=== PATIENT | male | born 1985 | race Caucasian/White ===

== ENCOUNTER 2019-10-03 22:20 | Emergency (ER) | payer OTHER ==
[2019-10-03] MEDS ORDERED: ONDANSETRON 4 MG TAB.RAPDIS PO ONE (22:49)
--- NOTE | 2019-10-03 22:51 | ER Document Report ---
ED Medical Screen (RME) - General Stated Complaint: NAUSEA/DIARRHEA Time Seen by Provider: 10/03/19 22:46 Primary Care Provider: RYLEE BURGESS MD [Primary Care Provider] - Follow up as needed TRAVEL OUTSIDE OF THE [place] IN LAST 30 DAYS: No - HPI Notes: 10/03/19 22:50 Patient is a 34-year-old male with a history of hypertension, hypercholesterolemia, GERD, asthma presents complaining of having nausea and vomiting as well as diarrhea that began this morning. He came by EMS and did receive 4 mg of Zofran about 45 minutes ago. He is still urinating normally. No melena or hematochezia. He did have a URI recently and finished antibiotics a few days ago. Denies any fever, cough, chest pain, shortness of breath. I have treated and performed a rapid initial assessment of this patient. A comprehensive ED assessment and evaluation of the patient, analysis of test results and completion of medical decision making process will be conducted by additional ED providers. PHYSICAL EXAMINATION: GENERAL: Well-appearing, well-nourished and in no acute distress. A&Ox4. Answers questions appropriately. Abdomen: Limited exam in triage, grossly nontender throughout. Abdomen is soft. - Related Data Allergies/Adverse Reactions: No Known Allergies Allergy (Verified 10/03/19 22:48) Past Medical History Past Surgical History: Reports: Hx Oral Surgery - Immunizations Hx Diphtheria, Pertussis, Tetanus Vaccination: No Physical Exam - Vital signs Vitals: Temp Pulse Resp BP Pulse Ox 98.2 F 100 20 168/109 H 96 10/03/19 22:31 10/03/19 22:31 10/03/19 22:31 10/03/19 22:31 10/03/19 22:31 Course - Vital Signs Vital signs: Temp Pulse Resp BP Pulse Ox 98.2 F 100 20 168/109 H 96 10/03/19 22:31 10/03/19 22:31 10/03/19 22:31 10/03/19 22:31 10/03/19 22:31 Doctor's Discharge - Discharge Referrals: RYLEE BURGESS MD [Primary Care Provider] - Follow up as needed
[2019-10-04 00:10] LABS: APPEARANCE,URINE CLEAR; BILIRUBIN,URINE NEGATIVE (NEGATIVE); COLOR,URINE YELLOW; GLUCOSE, URINE NEGATIVE (NEGATIVE); KETONES,URINE NEGATIVE (NEGATIVE); PROTEIN,URINE NEGATIVE (NEGATIVE); URINE SPECIFIC GRAVITY 1.011; UROBILINOGEN,URINE NEGATIVE mg/dL (<2.0)
[2019-10-04] MEDS: NORMAL SALINE 1000 ML 1,000 ML IV PRN ×2 (00:18→02:43)
[2019-10-04 00:28] LABS: ABSOLUTE BASOPHILS # (AUTO) 0.1 10^3/uL (0.0-0.2); ABSOLUTE EOSINOPHILS # (AUTO) 0.1 10^3/uL (0.0-0.6); ABSOLUTE LYMPHOCYTES (AUTO) 2.4 10^3/uL (0.5-4.7); ABSOLUTE MONOCYTES (AUTO) 0.8 10^3/uL (0.1-1.4); BASOPHILS % (AUTO) 0.9 % (0-2); EOSINOPHILS % (AUTO) 0.5 % (0-6); HEMATOCRIT 49.6 % (37.9-51.0); HEMOGLOBIN 17.8 g/dL (13.5-17.0); LYMPHOCYTES % (AUTO) 15.5 % (13-45); MEAN CORPUSCULAR HEMOGLOBIN 31.3 pg (27.0-33.4); MEAN CORPUSCULAR HGB CONC 35.9 g/dL (32.0-36.0); MEAN CORPUSCULAR VOLUME 87 fl (80-97); MONOCYTES % (AUTO) 5.4 % (3-13); PLATELET COUNT 305 10^3/uL (150-450); RED BLOOD COUNT 5.71 10^6/uL (4.35-5.55); RED CELL DISTRIBUTION WIDTH 13.4 % (11.5-14.0); SEGMENTED NEUTROPHILS % (AUTO) 77.7 % (42-78); TOTAL CELLS COUNTED % (AUTO) 100 %; WHITE BLOOD COUNT 15.5 10^3/uL (4.0-10.5)
[2019-10-04 00:44] LABS: ALBUMIN 4.9 g/dL (3.5-5.0); ALKALINE PHOSPHATASE 91 U/L (38-126); ANION GAP 14 (5-19); ASPARTATE AMINO TRANSFERASE 88 U/L (17-59); BILIRUBIN,DIRECT 0.3 mg/dL (0.0-0.4); BILIRUBIN,TOTAL 0.5 mg/dL (0.2-1.3); BLOOD UREA NITROGEN 12 mg/dL (7-20); CALCIUM 9.8 mg/dL (8.4-10.2); CARBON DIOXIDE 25 mmol/L (22-30); CHLORIDE 100 mmol/L (98-107); GLUCOSE 111 mg/dL (75-110); POTASSIUM 4.1 mmol/L (3.6-5.0); TOTAL PROTEIN 8.7 g/dL (6.3-8.2)
--- NOTE | 2019-10-04 01:47 | ER Document Report ---
ED GI/ - General Chief Complaint: Nausea/Vomiting/Diarrhea Stated Complaint: NAUSEA/DIARRHEA Time Seen by Provider: 10/03/19 22:46 Primary Care Provider: RYLEE BURGESS MD [ACTIVE STAFF] - Follow up as needed Notes: Patient is a 34-year-old male that comes emergency department for chief complaint of diarrhea, nausea, and intermittent mid to lower abdominal cramping. He states he has had about 12 episodes of nonbloody diarrhea today, he got nauseated but he denies vomiting, he denies fever. He denies current abdominal pain and occasionally has cramps. Patient finished antibiotics a few days ago after being treated for an upper respiratory infection, he is unsure of the antibiotic however. He denies having C. difficile in the past. He denies suspicious foods, sick contacts, recent travel. He is on medication for hyperlipidemia and GERD, also reports a history of asthma and TBI, denies any abdominal surgeries, denies smoking, alcohol, recreational drugs. Patient came by EMS. TRAVEL OUTSIDE OF THE [place] IN LAST 30 DAYS: No - Related Data Allergies/Adverse Reactions: No Known Allergies Allergy (Verified 10/03/19 22:48) Home Medications: GERD. HIGH LIIDS Past Medical History - General Information source: Patient - Social History Smoking Status: Former Smoker Frequency of alcohol use: None Drug Abuse: None Lives with: Family Family History: Reviewed & Not Pertinent Patient has suicidal ideation: No Patient has homicidal ideation: No Pulmonary Medical History: Reports: Hx Asthma GI Medical History: Reports: Hx Gastroesophageal Reflux Disease Past Surgical History: Reports: Hx Oral Surgery - wisdom teeth - Immunizations Hx Diphtheria, Pertussis, Tetanus Vaccination: No Review of Systems - Review of Systems Constitutional: No symptoms reported EENT: No symptoms reported Cardiovascular: No symptoms reported Respiratory: No symptoms reported Gastrointestinal: See HPI Genitourinary: No symptoms reported Male Genitourinary: No symptoms reported Musculoskeletal: No symptoms reported Skin: No symptoms reported Hematologic/Lymphatic: No symptoms reported Neurological/Psychological: No symptoms reported Physical Exam - Vital signs Vitals: Temp Pulse BP Pulse Ox 98.2 F 100 168/109 H 96 10/03/19 22:30 10/03/19 22:30 10/03/19 22:30 10/03/19 22:30 - Notes Notes: GENERAL: Alert, interacts well. No acute distress. HEAD: Normocephalic, atraumatic. EYES: Pupils equal, round, and reactive to light. Extraocular movements intact. ENT: Oral mucosa dry, tongue midline. Oropharynx unremarkable. Airway patent. LUNGS: Clear to auscultation bilaterally, no wheezes, rales, or rhonchi. No respiratory distress. HEART: Regular rate and rhythm. No murmur ABDOMEN: Soft, non-tender. Non-distended. Bowel sounds present in all 4 quadrants. No guarding or rigidity. GENITOURINARY: Deferred EXTREMITIES: Moves all 4 extremities spontaneously. No edema, normal radial and dorsalis pedis pulses bilaterally. No cyanosis. BACK: no cervical, thoracic, lumbar midline tenderness. No saddle anesthesia, normal distal neurovascular exam. Moves all extremities in full range of motion. NEUROLOGICAL: Alert and oriented x3. Normal speech. Cranial nerves II through XII grossly intact. PSYCH: Normal affect, normal mood. SKIN: Warm, dry, normal turgor. No rashes or lesions noted. Course - Re-evaluation Re-evalutation: Patient is talkative, well-appearing, alert on exam. His abdomen is completely benign with no tenderness. Patient states he thinks he will be able to give us a sample of diarrhea because he has had so many today. Vital signs unremarkable. CBC does show leukocytosis greater than 15,000, nonspecific given diarrhea. Chemistry nonspecific but does have slightly elevated LFTs. Lipase unremarkable. Patient does not have any right upper quadrant tenderness or flank pain on exam. I reevaluated patient. Patient states the Zofran made him feel great, he feels great after IV fluids and he is wondering if he can just go home. He has attempted twice to give us a stool sample but has been unable to do so. He states he has not been able to go for several hours now. Patient is actually quite happy with this, symptoms have significantly improved and basically resolved. Patient tolerated p.o. without any difficulty or any symptoms. I did attempt to get a stool sample from him but because he has not had any I do have a low suspicion of C. difficile. Overall presentation is most likely viral given his lack of abdominal tenderness, symptom resolution, and very well appearance. Very low suspicion of acute abdomen. Low suspicion of significant infection as well. Discussed expectations, follow-up, and return precautions in detail with patient and family. They state appreciation and agreement. Stable at time of discharge. - Vital Signs Vital signs: Temp Pulse Resp BP Pulse Ox 97.8 F 74 14 145/95 H 95 10/04/19 04:27 10/04/19 04:27 10/04/19 04:27 10/04/19 04:27 10/04/19 04:27 - Laboratory Result Diagrams: 10/04/19 00:10 10/04/19 00:10 Laboratory results interpreted by me: 10/03/19 10/04/19 10/04/19 23:45 00:10 00:10 WBC 15.5 H RBC 5.71 H Hgb 17.8 H Absolute Neuts (auto) 12.0 H Glucose 111 H AST 88 H ALT 164 H Total Protein 8.7 H Urine Blood SMALL H Discharge - Discharge Clinical Impression: Abdominal pain Qualifiers: Abdominal location: generalized Qualified Code(s): R10.84 - Generalized abdominal pain Diarrhea Qualifiers: Diarrhea type: unspecified type Qualified Code(s): R19.7 - Diarrhea, u nspecified Condition: Stable Disposition: HOME, SELF-CARE Additional Instructions: You have been treated for dehydration, abdominal pain, diarrhea today. Based on your resolving symptoms I suspect this is viral. Take Zofran if needed for nausea, I recommend [id number] probiotics to recover, start with bland food and slowly progress. Follow-up with primary care. Return for any concerning symptoms including vomi ting, severe worsening pain, fever, or any other concerning symptoms. Prescriptions: Ondansetron [Zofran Odt 4 mg Tablet] 1 - 2 tab PO Q4H PRN #15 tab.rapdis PRN Reason: For Nausea/Vomiting Referrals: RYLEE BURGESS MD [ACTIVE STAFF] - Follow up as needed
[2019-10-04] MEDS ORDERED: ONDANSETRON HCL INJ/PF 4 MG/2 ML SDV IV ONE (04:00)
[2019-10-04] MEDS ORDERED: ONDANSETRON ODT 4 MG TAB (6 TAB/ER DISP) PO PRN (04:00)
[2019-10-04 04:27] VITALS: BP 145/95
== END 2019-10-04 04:28 | disposition home or self-care (01) ==
LOC: ER 22:20
DX: R19.7 Diarrhea, unspecified (principal); R10.84 Generalized abdominal pain; R11.0 Nausea; D72.829 Elevated white blood cell count, unspecified; R79.89 Other specified abnormal findings of blood chemistry; E78.5 Hyperlipidemia, unspecified; K21.9 Gastro-esophageal reflux disease without esophagitis; J45.909 Unspecified asthma, uncomplicated; Z79.899 Other long term (current) drug therapy; Z87.891 Personal history of nicotine dependence
CPT/HCPCS: 99284; 96361; 96374; 36415; 83690; 85025; 80053; 81001; S0119; J2405; J7030

== ENCOUNTER 2020-02-24 13:03 | Emergency (ER) | payer OTHER ==
[2020-02-24] MEDS ORDERED: LIDOCAINE 2% VISCOUS SOLN 15 ML UDCUP PO ONE (16:21)
[2020-02-24] MEDS ORDERED: MAG HYDROX/AL HYDROX/SIMETH SUSP 30 ML UDCUP PO ONE (16:21)
[2020-02-24] MEDS ORDERED: ONDANSETRON 4 MG TAB.RAPDIS PO ONE (16:21)
[2020-02-24] MEDS ORDERED: METOCLOPRAMIDE HCL ORAL SOLN 10 MG/10 ML UDCUP PO ONE (16:21)
--- NOTE | 2020-02-24 16:48 | ER Document Report ---
ED General - General Chief Complaint: Nausea Stated Complaint: NAUSEA Time Seen by Provider: 02/24/20 16:13 Primary Care Provider: MARIS VALENTINE MD [Primary Care Provider] - Follow up as needed Mode of Arrival: Ambulatory Information source: Patient TRAVEL OUTSIDE OF THE [place] IN LAST 30 DAYS: No - HPI Notes: Patient presents with nausea. He states he has some upper abdominal discomfort but that he has had significant nausea for 3 days and that is why he comes in. The discomfort is mild and its across both sides the upper abdomen. It does radiate from one side to the other. Is intermittent. Nothing makes it better or worse. He states he has not vomited but he has had significant nausea. No problems with urination or bowel movements. No fevers. He denies any known covert virus exposures. No history of abdominal surgeries. - Related Data Allergies/Adverse Reactions: No Known Allergies Allergy (Verified 02/24/20 16:20) Past Medical History - General Information source: Patient - Social History Smoking Status: Former Smoker Frequency of alcohol use: None Drug Abuse: None Family History: Reviewed & Not Pertinent Patient has homicidal ideation: No Pulmonary Medical History: Reports: Hx Asthma GI Medical History: Reports: Hx Gastroesophageal Reflux Disease Past Surgical History: Reports: Hx Oral Surgery - wisdom teeth - Immunizations Hx Diphtheria, Pertussis, Tetanus Vaccination: No Review of Systems - Review of Systems Constitutional: denies: Chills, Fever Cardiovascular: denies: Chest pain, Palpitations Respiratory: denies: Cough, Short of breath -: Yes All other systems reviewed and negative Physical Exam - Vital signs Vitals: Temp Pulse Resp BP Pulse Ox 99.0 F 74 16 139/84 H 100 02/24/20 14:09 02/24/20 14:09 02/24/20 14:09 02/24/20 14:09 02/24/20 14:09 Interpretation: Normal - General General appearance: Appears well, Alert - HEENT Head: Normocephalic, Atraumatic Eyes: Normal Pupils: PERRL - Respiratory Respiratory status: No respiratory distress Chest status: Nontender Breath sounds: Normal Chest palpation: Normal - Cardiovascular Rhythm: Regular Heart sounds: Normal auscultation Murmur: No - Abdominal Inspection: Normal Distension: No distension Bowel sounds: Normal Tenderness: Tender - minimal epigastric tenderness to palp Organomegaly: No organomegaly - Back Back: Normal, Nontender - Extremities General upper extremity: Normal inspection, Nontender, Normal color, Normal ROM, Normal temperature General lower extremity: Normal inspection, Nontender, Normal color, Normal ROM, Normal temperature, Normal weight bearing. No: Aileen's sign - Neurological Neuro grossly intact: Yes Cognition: Normal Orientation: AAOx4 [place] Coma Scale Eye Opening: Spontaneous [place] Coma Scale Verbal: Oriented Ana Coma Scale Motor: Obeys Commands Ana Coma Scale Total: 15 Speech: Normal Motor strength normal: LUE, RUE, LLE, RLE Sensory: Normal - Psychological Associated symptoms: Normal affect, Normal mood - Skin Skin Temperature: Warm Skin Moisture: Dry Skin Color: Normal Course - Re-evaluation Re-evalutation: 02/24/20 18:50 Patient came in with epigastric discomfort and nausea. He said his main symptom was nausea. He has no evidence of cardiac pathology by troponin or EKG. Patient is currently waiting on the reading of his ultrasound to see if there is any gallbladder or biliary component to his symptoms. He does have some minor elevation of his LFTs. I have turned the care of the patient over to Dr. Paradise vallejo who will reexamine the patient and follow-up on results of the ultrasound to determine final disposition and plan. - Vital Signs Vital signs: Temp Pulse Resp BP Pulse Ox 99.0 F 74 16 139/84 H 100 02/24/20 16:00 02/24/20 14:09 02/24/20 14:09 02/24/20 14:09 02/24/20 14:09 - Laboratory Result Diagrams: 02/24/20 16:45 02/24/20 16:45 Laboratory results interpreted by me: 02/24/20 02/24/20 16:45 16:45 WBC 10.7 H RBC 5.83 H Hgb 17.4 H Hct 51.2 H Sodium 136.6 L AST 60 H ALT 115 H Creatine Kinase 175 H Total Protein 8.7 H Albumin 5.1 H Discharge - Discharge Clinical Impression: Nausea Condition: Stable Disposition: OTHER Referrals: MARIS VALENTINE MD [Primary Care Provider] - Follow up as needed
[2020-02-24 17:05] LABS: ABSOLUTE EOSINOPHILS # (AUTO) 0.1 10^3/uL (0.0-0.6); ABSOLUTE LYMPHOCYTES (AUTO) 1.8 10^3/uL (0.5-4.7); ABSOLUTE MONOCYTES (AUTO) 0.7 10^3/uL (0.1-1.4); ABSOLUTE NEUT (AUTO) 8.1 10^3/uL (1.7-8.2); BASOPHILS % (AUTO) 0.5 % (0-2); EOSINOPHILS % (AUTO) 0.9 % (0-6); HEMATOCRIT 51.2 % (37.9-51.0); HEMOGLOBIN 17.4 g/dL (13.5-17.0); LYMPHOCYTES % (AUTO) 17.2 % (13-45); MEAN CORPUSCULAR HEMOGLOBIN 29.9 pg (27.0-33.4); MEAN CORPUSCULAR VOLUME 88 fl (80-97); MONOCYTES % (AUTO) 6.3 % (3-13); PLATELET COUNT 274 10^3/uL (150-450); RED BLOOD COUNT 5.83 10^6/uL (4.35-5.55); RED CELL DISTRIBUTION WIDTH 12.8 % (11.5-14.0); SEGMENTED NEUTROPHILS % (AUTO) 75.1 % (42-78); TOTAL CELLS COUNTED % (AUTO) 100 %; WHITE BLOOD COUNT 10.7 10^3/uL (4.0-10.5)
[2020-02-24 17:25] LABS: ALBUMIN 5.1 g/dL (3.5-5.0); ALKALINE PHOSPHATASE 95 U/L (38-126); ANION GAP 10 (5-19); ASPARTATE AMINO TRANSFERASE 60 U/L (17-59); BILIRUBIN,DIRECT 0.1 mg/dL (0.0-0.4); BILIRUBIN,TOTAL 0.9 mg/dL (0.2-1.3); BLOOD UREA NITROGEN 13 mg/dL (7-20); CALCIUM 9.7 mg/dL (8.4-10.2); CARBON DIOXIDE 25 mmol/L (22-30); CHLORIDE 102 mmol/L (98-107); CREATINE KINASE 175 U/L (55-170); GLUCOSE 85 mg/dL (75-110); POTASSIUM 4.1 mmol/L (3.6-5.0); TOTAL PROTEIN 8.7 g/dL (6.3-8.2)
--- NOTE | 2020-02-24 18:56 | RADIOLOGY REPORT (SQ) ---
EXAM DESCRIPTION: U/S ABDOMEN LIMITED W/O DOP IMAGES COMPLETED DATE/TIME: 02/24/2020 6:00 pm REASON FOR STUDY: ruq discomfort COMPARISON: None. TECHNIQUE: Dynamic and static grayscale images acquired of the abdomen and recorded on PACS. Additio sofia selected color Doppler and spectral images recorded. LIMITATIONS: None. FINDINGS: PANCREAS: No masses. The tail was poorly seen. LIVER: Increased echogenicity. No masses. LIVER VASCULATURE: Normal directional flow of the main portal vein and hepatic veins. GALLBLADDER: No stones. Normal wall thickness. No pericholecystic fluid. ULTRASOUND-DETECTED THAO'S SIGN: Negative. INTRAHEPATIC DUCTS AND COMMON DUCT: CBD and intrahepatic ducts normal caliber. No filling defects. AORTA: No aneurysm. RIGHT KIDNEY: Normal size, 12.2 cm. Normal echogenicity. No solid or suspicious masses. No hydroneph rosis. No calcifications. PERITONEAL AND RIGHT PLEURAL SPACE: No ascites or effusions. OTHER: No other significant findings. IMPRESSION: Hepatic steatosis. No gallstones TECHNICAL DOCUMENTATION: JOB ID: [id number] [employer]- All Rights Reserved Reading location - IP/workstation name: [email or web address]
[2020-02-24] MEDS ORDERED: ONDANSETRON ODT 4 MG TAB (6 TAB/ER DISP) PO PRN (19:20)
--- NOTE | 2020-02-24 19:20 | ER Document Report ---
Doctor's Note Notes: 02/24/20 19:17 Follow-up note This is a patient I received with transfer of care from Dr. Maciel Santiago at 1830 hrs. Previously healthy 34-year-old male with no known covert exposure or significant travel who has a 3-day history of intermittent nausea vomiting with some mild epigastric burning. He denies fever. He denies significant abdominal pain. Reexam shows this man to be relatively obese. His bowel sounds are hyperactive his abdomen is soft and nontender he does not appear toxic the remainder of his exam is unremarkable. Patient was noted to have some minimal transaminase examinations on his chemistry profile. His white count is normal. Dr. Adams had ordered a gallbladder ultrasound which was remarkable for some fatty infiltration of the liver with no gallstones or ductal dilatation noted. Patient notes he has had 2 watery stools since he has been here. He got some medication for nausea and a GI cocktail and generally feels better. I explained patient this is likely viral. He understands to return here if he has new or worsening symptoms and will follow-up with his primary care physician if his symptoms fail to resolve within the next 48 hours. Findings, clinical impression and plan of treatment have been discussed with patient/family. Understanding of current findings and recommendations has been acknowledged by them and there is agreement regarding disposition and follow-up.
--- NOTE | 2020-02-24 19:48 | EKG REPORT ---
SEVERITY:- NORMAL ECG - SINUS RHYTHM : Confirmed by: Monica Puga MD 24-Feb-2020 19:47:51
[2020-02-24 20:24] VITALS: BP 135/90
== END 2020-02-24 20:00 | disposition other institution (70) ==
LOC: ER 13:03
DX: R11.0 Nausea (principal); R10.9 Unspecified abdominal pain; R10.10 Upper abdominal pain, unspecified; Z87.891 Personal history of nicotine dependence; J45.909 Unspecified asthma, uncomplicated
CPT/HCPCS: 93005; 99284; 36415; 82550; 85025; 80053; 84484; 76705; 93010; S0119; J3490

== ENCOUNTER 2020-04-19 23:56 | Emergency (ER) | payer OTHER ==
[2020-04-20 00:15] VITALS: BP 154/98
--- NOTE | 2020-04-20 00:30 | ER Document Report ---
ED Medical Screen (RME) - General Stated Complaint: ABDOMINAL PAIN NAUSEA Time Seen by Provider: 04/20/20 00:27 Primary Care Provider: MARIS VALENTINE MD [Primary Care Provider] - Follow up as needed Mode of Arrival: Ambulatory Information source: Patient Notes: 34-year-old male with history of GERD and chronic abdominal pain for months coming in today because he had increased amount of pain in his stomach. Hurts to eat. Losing weight. Physical exam: General: Nontoxic, no acute distress cardiac regular rate and rhythm Pulmonary clear to auscultation bilaterally, no respiratory distress Abdomen: Epigastric tenderness palpation. No guarding or rebound I have greeted and performed a rapid initial assessment of this patient. A comprehensive ED assessment and evaluation of the patient, analysis of test results and completion of the medical decision making process will be conducted by additional ED providers. TRAVEL OUTSIDE OF THE [place] IN LAST 30 DAYS: No - Related Data Allergies/Adverse Reactions: No Known Allergies Allergy (Verified 02/24/20 16:20) Past Medical History Pulmonary Medical History: Reports: Hx Asthma GI Medical History: Reports: Hx Gastroesophageal Reflux Disease Past Surgical History: Reports: Hx Oral Surgery - wisdom teeth - Immunizations Hx Diphtheria, Pertussis, Tetanus Vaccination: No Physical Exam - Vital signs Vitals: Temp Pulse Resp BP Pulse Ox 98 F 91 16 154/98 H 97 04/20/20 00:13 04/20/20 00:13 04/20/20 00:13 04/20/20 00:13 04/20/20 00:13 Course - Vital Signs Vital signs: Temp Pulse Resp BP Pulse Ox 98 F 91 16 154/98 H 97 04/20/20 00:13 04/20/20 00:13 04/20/20 00:13 04/20/20 00:13 04/20/20 00:13 Doctor's Discharge - Discharge Referrals: MARIS VALENTINE MD [Primary Care Provider] - Follow up as needed
[2020-04-20 01:04] LABS: ABSOLUTE EOSINOPHILS # (AUTO) 0.2 10^3/uL (0.0-0.6); MEAN CORPUSCULAR HEMOGLOBIN 30.4 pg (27.0-33.4); TOTAL CELLS COUNTED % (AUTO) 100 %
[2020-04-20 01:09] LABS: ABSOLUTE LYMPHOCYTES (AUTO) 1.5 10^3/uL (0.5-4.7); ABSOLUTE MONOCYTES (AUTO) 0.5 10^3/uL (0.1-1.4); ABSOLUTE NEUT (AUTO) 5.1 10^3/uL (1.7-8.2); BASOPHILS % (AUTO) 0.6 % (0-2); EOSINOPHILS % (AUTO) 2.8 % (0-6); HEMATOCRIT 49.5 % (37.9-51.0); HEMOGLOBIN 17.5 g/dL (13.5-17.0); LYMPHOCYTES % (AUTO) 20.1 % (13-45); MEAN CORPUSCULAR HGB CONC 35.3 g/dL (32.0-36.0); MEAN CORPUSCULAR VOLUME 86 fl (80-97); MONOCYTES % (AUTO) 6.5 % (3-13); PLATELET COUNT 215 10^3/uL (150-450); RED BLOOD COUNT 5.76 10^6/uL (4.35-5.55); RED CELL DISTRIBUTION WIDTH 13.8 % (11.5-14.0); WHITE BLOOD COUNT 7.3 10^3/uL (4.0-10.5)
[2020-04-20 01:12] LABS: APPEARANCE,URINE SLIGHTLY-CLOUDY; BILIRUBIN,URINE NEGATIVE (NEGATIVE); COLOR,URINE AMBER; GLUCOSE, URINE NEGATIVE (NEGATIVE); KETONES,URINE 80 mg/dL (NEGATIVE); PROTEIN,URINE 30 mg/dL (NEGATIVE); URINE SPECIFIC GRAVITY 1.031
[2020-04-20 01:34] LABS: ALBUMIN 4.9 g/dL (3.5-5.0); ALKALINE PHOSPHATASE 91 U/L (38-126); ANION GAP 16 (5-19); ASPARTATE AMINO TRANSFERASE 84 U/L (17-59); BILIRUBIN,DIRECT 0.5 mg/dL (0.0-0.4); BILIRUBIN,TOTAL 1.4 mg/dL (0.2-1.3); BLOOD UREA NITROGEN 11 mg/dL (7-20); CALCIUM 9.8 mg/dL (8.4-10.2); CARBON DIOXIDE 22 mmol/L (22-30); CHLORIDE 103 mmol/L (98-107); GLUCOSE 92 mg/dL (75-110); POTASSIUM 3.6 mmol/L (3.6-5.0)
== END 2020-04-20 03:55 | disposition left against medical advice (07) ==
LOC: ER 23:56
DX: R10.9 Unspecified abdominal pain (principal); K21.9 Gastro-esophageal reflux disease without esophagitis
CPT/HCPCS: 36415; 80053; 81001; 83690; 85025; 99281

== ENCOUNTER 2020-04-24 07:01 | Day surgery (SDC) | payer OTHER ==
[2020-04-24] MEDS ORDERED: PROPOFOL INJ 200 MG/20 ML VIAL IV ONE (07:12)
--- NOTE | 2020-04-24 08:19 | Operative Report ---
Operative Report DATE OF SURGERY: 04/24/20 Operative Report: The risk, benefits and alternatives of the procedure including the risk of bleeding, perforation requiring surgery have been explained to the patient in detail and informed consent has been obtained. The patient is taken back to the endoscopy suite and placed in the left, lateral decubital position. Timeout was called. Propofol medication is administered. Rectal examination is done which did not reveal any masses, tears or fissures. An Olympus videoscope was introduced into the patient's rectum and carefully advanced all the way to the cecum. Cecum was identified by the usual anatomical landmarks including the ileocecal valve as well as the appendiceal office. Photodocumentation is obtained. Scope was then sequentially pulled back via the various segments of the colon including the ascending colon, hepatic flexure, transverse colon, splenic flexure, descending colon and finally into the rectosigmoid portions of the colon. Retroflexion maneuvers performed. The risks benefits and alternatives of the procedure explained to the patient in detail and informed consent is obtained.A GIF Olympus video scope was inserted into the patient's mouth and hypopharynx, the esophagus is identified intubated and insufflated ,the scope was then advanced through the esophagus stomach and duodenum, retroflexion maneuver is done ,the esophagus stomach and first and second portions of the duodenum examined PREOPERATIVE DIAGNOSIS: Change in bowel habits. Epigastric pain POSTOPERATIVE DIAGNOSIS: Right colon inflammation status post biopsy. Rectal polyp status post biopsy. Internal hemorrhoids. Esophageal rings and furrows status post biopsy rule out eosinophilic esophagitis. Gastritis status post biopsy OPERATION: Colonoscopy with biopsy. EGD with biopsy SURGEON: LISA TRINIDAD ANESTHESIA: LMAC TISSUE REMOVED OR ALTERED: As noted above. COMPLICATIONS: None. ESTIMATED BLOOD LOSS: None. INTRAOPERATIVE FINDINGS: As noted above. PROCEDURE: Patient tolerated the procedure well. No immediate postprocedure complications are noted. Patient is discharged in good condition. Discharge date 04/24/2020. Discharge diet: Regular. Discharge activity: Regular. 2 to 3-week follow-up to discuss findings. Patient is instructed call the office or proceed to the emergency room should there be any further problems or questions. Wait on the pathology. Possible 5 to 10-year surveillance colonoscopy
[2020-04-24 08:47] VITALS: BP 118/80
== END 2020-04-24 08:50 | disposition home or self-care (01) ==
LOC: END 07:01
PROVIDERS: ATTEND Internal Medicine Gastroenterology
DX: K29.50 Unspecified chronic gastritis without bleeding (principal); K52.9 Noninfective gastroenteritis and colitis, unspecified; K63.5 Polyp of colon; K64.8 Other hemorrhoids; R63.4 Abnormal weight loss; J45.909 Unspecified asthma, uncomplicated; E66.9 Obesity, unspecified; J02.9 Acute pharyngitis, unspecified; K21.9 Gastro-esophageal reflux disease without esophagitis; Z79.899 Other long term (current) drug therapy; Z79.51 Long term (current) use of inhaled steroids; Z20.828 Contact with and (suspected) exposure to other viral communicable diseases
CPT/HCPCS: 43239; 45380; 88305 ×2; 00813; J2704; 813

== ENCOUNTER 2020-05-09 15:32 | Emergency (ER) | payer OTHER ==
[2020-05-09] MEDS ORDERED: LIDOCAINE 2% VISCOUS SOLN 15 ML UDCUP PO ONE ×2 (16:25→18:31)
[2020-05-09] MEDS ORDERED: MAG HYDROX/AL HYDROX/SIMETH SUSP 30 ML UDCUP PO ONE ×2 (16:25→18:31)
--- NOTE | 2020-05-09 16:59 | ER Document Report ---
Entered by FLOYD RAYMOND SCRIBE 05/09/20 1624 Acting as scribe for:LORIN HEATON MD ED GI/ - General Chief Complaint: Vomiting Stated Complaint: VOMITING Time Seen by Provider: 05/09/20 16:05 Primary Care Provider: MAURY HANDY, SHARYN [Primary Care Provider] - Follow up as needed Mode of Arrival: Ambulatory Information source: Patient Notes: This 35 year old male patient presents to the emergency department today with complaints of vomiting with associated epigastric abdominal pain. Patient had an upper endoscopy 2 weeks ago which showed eosinophilic esophagitis and mild inactive gastritis. He reports he was started on Flonase which made him gag so he was changed to Flovent which he thinks is causing thrush. He states he was seen by his PCP recently and he was started on nystatin on the and Diflucan yesterday. Patient states yesterday morning he began vomiting "stomach acid" and has vomited through today. TRAVEL OUTSIDE OF THE [place] IN LAST 30 DAYS: No - Related Data Allergies/Adverse Reactions: No Known Allergies Allergy (Verified 04/23/20 12:08) Past Medical History - General Information source: Patient - Social History Smoking Status: Former Smoker - quit 2-3 years ago Cigarette use (# per day): No Frequency of alcohol use: None Drug Abuse: None Lives with: Family Family History: Reviewed & Not Pertinent Pulmonary Medical History: Reports: Hx Asthma GI Medical History: Reports: Hx Gastroesophageal Reflux Disease Psychiatric Medical History: Reports: Hx Post Traumatic Stress Disorder Traumatic Medical History: Reports: Hx Traumatic Brain Injury Past Surgical History: Reports: Hx Oral Surgery - wisdom teeth - Immunizations Hx Diphtheria, Pertussis, Tetanus Vaccination: Yes Review of Systems - Review of Systems Constitutional: No symptoms reported EENT: See HPI, Other - thrush Cardiovascular: No symptoms reported Respiratory: No symptoms reported Gastrointestinal: See HPI, Abdominal pain, Vomiting Genitourinary: No symptoms reported Male Genitourinary: No symptoms reported Musculoskeletal: No symptoms reported Skin: No symptoms reported Hematologic/Lymphatic: No symptoms reported Neurological/Psychological: No symptoms reported -: Yes All other systems reviewed and negative Physical Exam - Vital signs Vitals: Temp Pulse Resp BP Pulse Ox 98.5 F 73 16 143/96 H 95 05/09/20 15:44 05/09/20 15:44 05/09/20 15:44 05/09/20 15:44 05/09/20 15:44 - Notes Notes: Physical Exam: General: Alert, obese. HEENT: Normocephalic. Atraumatic. PERRL. Extraocular movements intact. Oropharynx clear. No posterior oropharynx erythema or thrush appreciated. Neck: Supple. Non-tender. Respiratory: No respiratory distress. Clear and equal breath sounds bilaterally. Cardiovascular: Regular rate and rhythm. Abdominal: Obese. Minimal epigastric tenderness to palpation. No distension. Normal Bowel Sounds. Back: No gross abnormalities. Extremities: Moves all four extremities. Upper extremities: Normal inspection. Normal ROM. Lower extremities: Normal inspection. No edema. Normal ROM. Neurological: Normal cognition. AAOx4. Normal speech. Psychological: Normal affect. Normal Mood. Skin: Warm. Dry. Normal color. Course - Vital Signs Vital signs: Temp Pulse Resp BP Pulse Ox 98.5 F 73 16 143/96 H 95 05/09/20 15:44 05/09/20 15:44 05/09/20 15:44 05/09/20 15:44 05/09/20 15:44 - Laboratory Result Diagrams: 05/09/20 17:10 05/09/20 17:10 Laboratory results interpreted by me: 05/09/20 05/09/20 05/09/20 17:10 17:10 17:36 RBC 5.63 H Hgb 17.1 H Potassium 3.3 L Chloride 96 L Carbon Dioxide 21 L Anion Gap 20 H Total Bilirubin 1.5 H Direct Bilirubin 0.7 H AST 85 H ALT 165 H Urine Protein 100 H Urine Ketones 20 H Urine Bilirubin MODERATE H Urine Urobilinogen 4.0 H Discharge - Discharge Clinical Impression: Eosinophilic esophagitis Nausea and vomiting Qualifiers: Vomiting type: unspecified Vomiting Intractability: non-intractable Qualified Code(s): R11.2 - Nausea with vomiting, unspecified Condition: Stable Disposition: HOME, SELF-CARE Additional Instructions: Reflux Disease (GERD) Gastro-Esophageal Reflux Disease (GERD) is caused by stomach acid refluxing back up into the esophagus. The valve at the end of the esophagus may be weak. This is common in persons with a hiatal hernia. GERD symptoms can include indigestion, chest pain, heartburn, or food "sticking." Certain foods, alcohol, and aspirin can make GERD worse. Treatment depends on the severity. Usually, antacids or acid-suppressing medicines are used. When the esophagus is acutely inflamed, the physician will often prescribe membrane-protective drugs such as Carafate. Some patients benefit from medication such as Reglan that tightens the valve at the top of the stomach. Avoid those foods that bring on your symptoms. For many people, these foods are coffee, chocolate, onions, garlic, and carbonated drinks. Don't use alcohol, aspirin, caffeine, or tobacco. Don't eat late at night -- within 4 hours of bedtime. Don't over-eat. If necessary, elevate the head of your bed about 4 inches so that stomach acid will not roll up into your esophagus. Call the doctor if you develop severe chest pain, inability to swallow fluids, fever, or worsening symptoms. Gastritis You have an inflammation of the stomach called gastritis. This commonly causes upper abdominal pain, nausea, and vomiting. In severe cases, bleeding of the stomach lining can occur. Gastritis can be caused by bacteria or viruses, alcohol, or stomach-irritating drugs. Begin with sips of clear liquids. Take increasing amounts of fluid over the first 24 hours. Then start small amounts of bland foods (such as dry toast, applesauce, mashed potato). Gradually resume your usual diet. You should take antacids every two hours until the pain has subsided. Acid-suppressing drugs may be prescribed as well. Avoid aspirin, caffeine, tobacco, and alcohol. If the abdominal pain worsens, or there is evidence of major bleeding in the stomach (such as black, tarry stool, bloody or black vomit, or lightheadedness), you should return immediately. Call the doctor if you aren't improved in 24 to 36 hours. Continue your regular medications. Be sure you rinse your mouth after using the steroid inhaler to avoid getting thrush. Take the Phenergan as prescribed for nauseousness if needed. Drink small sips of cool clear liquids. Take antacids between meals and at bedtime. Follow-up with your primary care provider or your plater printed circuit board panels this week if not improving. RETURN TO THE EMERGENCY ROOM IF ANY NEW OR WORSENING SYMPTOMS. Prescriptions: Promethazine HCl [Phenergan 25 mg Tablet] 25 - 50 mg PO ASDIR PRN #12 tablet PRN Reason: Referrals: MAURY HANDY, COIL TAPER [Primary Care Provider] - Follow up as needed I personally performed the services described in the documentation, reviewed and edited the documentation which was dictated to the scribe in my presence, and it accurately records my words and actions.
[2020-05-09 17:42] LABS: ALBUMIN 4.6 g/dL (3.5-5.0); ALKALINE PHOSPHATASE 99 U/L (38-126); ASPARTATE AMINO TRANSFERASE 85 U/L (17-59); BILIRUBIN,DIRECT 0.7 mg/dL (0.0-0.4); BILIRUBIN,TOTAL 1.5 mg/dL (0.2-1.3); BLOOD UREA NITROGEN 10 mg/dL (7-20); CALCIUM 9.7 mg/dL (8.4-10.2); CARBON DIOXIDE 21 mmol/L (22-30); CHLORIDE 96 mmol/L (98-107); GLUCOSE 91 mg/dL (75-110); POTASSIUM 3.3 mmol/L (3.6-5.0); TOTAL PROTEIN 7.8 g/dL (6.3-8.2)
[2020-05-09 17:46] LABS: ABSOLUTE EOSINOPHILS # (AUTO) 0.1 10^3/uL (0.0-0.6); ABSOLUTE LYMPHOCYTES (AUTO) 1.3 10^3/uL (0.5-4.7); ABSOLUTE MONOCYTES (AUTO) 1.1 10^3/uL (0.1-1.4); ABSOLUTE NEUT (AUTO) 6.7 10^3/uL (1.7-8.2); BASOPHILS % (AUTO) 0.3 % (0-2); EOSINOPHILS % (AUTO) 0.9 % (0-6); HEMOGLOBIN 17.1 g/dL (13.5-17.0); LYMPHOCYTES % (AUTO) 14.2 % (13-45); MEAN CORPUSCULAR HEMOGLOBIN 30.4 pg (27.0-33.4); MEAN CORPUSCULAR HGB CONC 35.7 g/dL (32.0-36.0); MEAN CORPUSCULAR VOLUME 85 fl (80-97); MONOCYTES % (AUTO) 11.9 % (3-13); PLATELET COUNT 193 10^3/uL (150-450); RED BLOOD COUNT 5.63 10^6/uL (4.35-5.55); SEGMENTED NEUTROPHILS % (AUTO) 72.7 % (42-78); TOTAL CELLS COUNTED % (AUTO) 100 %; WHITE BLOOD COUNT 9.2 10^3/uL (4.0-10.5)
[2020-05-09 17:48] LABS: ANION GAP 20 (5-19)
[2020-05-09 17:50] LABS: APPEARANCE,URINE SLIGHTLY-CLOUDY; BILIRUBIN,URINE MODERATE (NEGATIVE); COLOR,URINE AMBER; GLUCOSE, URINE NEGATIVE (NEGATIVE); KETONES,URINE 20 mg/dL (NEGATIVE); LEUKOCYTE ESTERASE,URINE NEGATIVE (NEGATIVE); NITRITE,URINE NEGATIVE (NEGATIVE); PROTEIN,URINE 100 mg/dL (NEGATIVE)
[2020-05-09 18:06] LABS: URINE AMPHETAMINES SCREEN NEGATIVE; URINE BARBITURATES SCREEN NEGATIVE; URINE BENZODIAZEPINES SCREEN NEGATIVE; URINE COCAINE SCREEN NEGATIVE; URINE MARIJUANA (THC) SCREEN NEGATIVE; URINE METHADONE SCREEN NEGATIVE; URINE PHENCYCLIDINE SCREEN NEGATIVE
[2020-05-09] MEDS ORDERED: DEXTROSE 5%-LACTATED RINGERS 1,000 ML IV ONE (18:18)
[2020-05-09] MEDS ORDERED: PROMETHAZINE HCL INJ 25 MG/1 ML VIAL IV ONE (18:51)
[2020-05-09] MEDS ORDERED: PROMETHAZINE HCL 25 MG SUPP (4 SUPP/ER DISP) PR PRN (19:21)
[2020-05-09 19:40] VITALS: BP 119/73
== END 2020-05-09 19:41 | disposition home or self-care (01) ==
LOC: ER 15:32
DX: R11.2 Nausea with vomiting, unspecified (principal); K20.0 Eosinophilic esophagitis; R10.13 Epigastric pain; B37.9 Candidiasis, unspecified; J45.909 Unspecified asthma, uncomplicated; Z87.19 Personal history of other diseases of the digestive system; Z87.891 Personal history of nicotine dependence
CPT/HCPCS: 99284; 96375; 96365; 36415; 85025; 80053; 81001; 80307; J3490 ×2; J2550; J7121

== ENCOUNTER 2020-05-12 10:21 | Observation (INO) | payer OTHER ==
[2020-05-12] MEDS ORDERED: METOCLOPRAMIDE HCL INJ/PF 10 MG/2 ML SDV IV ONE (13:03)
[2020-05-12] MEDS ORDERED: RINGERS SOLUTION,LACTATED 1,000 ML IV ONE (13:03)
--- NOTE | 2020-05-12 13:06 | ER Document Report ---
ED Medical Screen (RME) - General Chief Complaint: Nausea/Vomiting Stated Complaint: NAUSEA/VOMITING Time Seen by Provider: 05/12/20 13:02 Primary Care Provider: MAURY HANDY NP [Primary Care Provider] - Follow up as needed Mode of Arrival: Ambulatory Information source: Patient Notes: HPI; 35-year-old male presents to the emergency room with persistent vomiting. States he started vomiting up blood last night. Patient states he was seen here on Monday was discharged home but is not improving. States he recently had an upper endoscopy and was diagnosed with eosinophilic esophagitis. Also has a history of reflux. He denies any fevers. He denies any urinary symptoms. States the abdominal cramping but only related to the vomiting. He denies any r ecent travel. He denies any COVID-19 exposure. Did have a negative cover test a month ago. PE: Alert and oriented x3. Mild distress noted. Lungs: Clear to auscultation without rales, rhonchi, wheezes. Heart: Regular rate rhythm without murmurs, rubs, gallops. I have greeted and performed a rapid initial assessment of this patient. A comprehensive ED assessment and evaluation of the patient, analysis of test results and completion of the medical decision making process will be conducted by additional ED providers. I have specifically instructed the patient or family members with the patient to immediately return to any nursing staff should anything change in the patient's condition or with their chief complaint. TRAVEL OUTSIDE OF THE [place] IN LAST 30 DAYS: No - Related Data Allergies/Adverse Reactions: No Known Allergies Allergy (Verified 04/23/20 12:08) Past Medical History - Past Medical History Cardiac Medical History: Denies: Hx Coronary Artery Disease, Hx Heart Attack, Hx Hypertension Pulmonary Medical History: Reports: Hx Asthma Denies: Hx Bronchitis, Hx COPD, Hx Pneumonia Neurological Medical History: Denies: Hx Cerebrovascular Accident, Hx Seizures GI Medical History: Reports: Hx Gastroesophageal Reflux Disease Musculoskeltal Medical History: Denies Hx Arthritis Psychiatric Medical History: Reports: Hx Post Traumatic Stress Disorder Traumatic Medical History: Reports: Hx Traumatic Brain Injury Past Surgical History: Reports: Hx Oral Surgery - wisdom teeth - Immunizations Hx Diphtheria, Pertussis, Tetanus Vaccination: Yes Physical Exam - Vital signs Vitals: Temp Pulse Resp BP Pulse Ox 99.0 F 54 L 16 108/78 95 05/12/20 12:11 05/12/20 12:11 05/12/20 12:11 05/12/20 12:11 05/12/20 12:11 Course - Vital Signs Vital signs: Temp Pulse Resp BP Pulse Ox 99.0 F 54 L 16 108/78 95 05/12/20 12:11 05/12/20 12:11 05/12/20 12:11 05/12/20 12:11 05/12/20 12:11 Doctor's Discharge - Discharge Referrals: MAURY HANDY HEALTH THERAPIST [Primary Care Provider] - Follow up as needed
[2020-05-12 14:18] LABS: ABSOLUTE LYMPHOCYTES (AUTO) 1.1 10^3/uL (0.5-4.7); ABSOLUTE MONOCYTES (AUTO) 0.8 10^3/uL (0.1-1.4); ABSOLUTE NEUT (AUTO) 7.3 10^3/uL (1.7-8.2); BASOPHILS % (AUTO) 0.4 % (0-2); EOSINOPHILS % (AUTO) 0.2 % (0-6); HEMATOCRIT 46.8 % (37.9-51.0); HEMOGLOBIN 16.8 g/dL (13.5-17.0); LYMPHOCYTES % (AUTO) 11.7 % (13-45); MEAN CORPUSCULAR HEMOGLOBIN 30.4 pg (27.0-33.4); MEAN CORPUSCULAR HGB CONC 35.9 g/dL (32.0-36.0); MEAN CORPUSCULAR VOLUME 85 fl (80-97); MONOCYTES % (AUTO) 8.9 % (3-13); PLATELET COUNT 216 10^3/uL (150-450); RED BLOOD COUNT 5.53 10^6/uL (4.35-5.55); RED CELL DISTRIBUTION WIDTH 14.1 % (11.5-14.0); SEGMENTED NEUTROPHILS % (AUTO) 78.8 % (42-78); TOTAL CELLS COUNTED % (AUTO) 100 %; WHITE BLOOD COUNT 9.2 10^3/uL (4.0-10.5)
--- NOTE | 2020-05-12 14:23 | RADIOLOGY REPORT (SQ) ---
EXAM DESCRIPTION: CHEST SINGLE VIEW IMAGES COMPLETED DATE/TIME: 05/12/2020 2:12 pm REASON FOR STUDY: cough COMPARISON: None. EXAM PARAMETERS: NUMBER OF VIEWS: One view. TECHNIQUE: Single frontal radiographic view of the chest acquired. RADIATION DOSE: NA LIMITATIONS: None. FINDINGS: LUNGS AND PLEURA: No opacities, masses or pneumothorax. No pleural effusion. MEDIASTINUM AND HILAR STRUCTURES: No masses. Contour normal. HEART AND VASCULAR STRUCTURES: Heart normal in size. Normal vasculature. BONES: No acute findings. HARDWARE: None in the chest. OTHER: No other significant finding. IMPRESSION: NO ACUTE RADIOGRAPHIC FINDING IN THE CHEST. TECHNICAL DOCUMENTATION: JOB ID: [id number] 2010 [employer]- All Rights Reserved Reading location - IP/workstation name: [email or web address]
[2020-05-12 14:35] LABS: APPEARANCE,URINE CLOUDY; BILIRUBIN,URINE NEGATIVE (NEGATIVE); COLOR,URINE AMBER; GLUCOSE, URINE NEGATIVE (NEGATIVE); KETONES,URINE 20 mg/dL (NEGATIVE); LEUKOCYTE ESTERASE,URINE NEGATIVE (NEGATIVE); NITRITE,URINE NEGATIVE (NEGATIVE); PROTEIN,URINE 100 mg/dL (NEGATIVE); URINE SPECIFIC GRAVITY 1.026
[2020-05-12 14:45] LABS: ALBUMIN 2.9 g/dL (3.5-5.0); ALKALINE PHOSPHATASE 75 U/L (38-126); ANION GAP 12 (5-19); ASPARTATE AMINO TRANSFERASE 72 U/L (17-59); BILIRUBIN,DIRECT 0.4 mg/dL (0.0-0.4); BILIRUBIN,TOTAL 0.8 mg/dL (0.2-1.3); BLOOD UREA NITROGEN 8 mg/dL (7-20); CARBON DIOXIDE 20 mmol/L (22-30); CHLORIDE 108 mmol/L (98-107); GLUCOSE 76 mg/dL (75-110); TOTAL PROTEIN 5.4 g/dL (6.3-8.2)
--- NOTE | 2020-05-12 14:51 | RADIOLOGY REPORT (SQ) ---
EXAM DESCRIPTION: CT ABD/PELVIS NO ORAL OR IV IMAGES COMPLETED DATE/TIME: 05/12/2020 2:37 pm REASON FOR STUDY: vomiting/abd discomfort COMPARISON: None. TECHNIQUE: CT scan of the abdomen and pelvis performed without intravenous or oral contrast. Images reviewed with lung, soft tissue, and bone windows. Reconstructed coronal and sagittal MPR images revi ewed. All images stored on PACS. All CT scanners at this facility use dose modulation, iterative reconstruction, and/or weight based d osing when appropriate to reduce radiation dose to as low as reasonably achievable (ALARA). [facility]: Dose Right [facility]: CareDose [facility]: Dose Right [facility]: Teradose 4D [facility]: Smart [employer] RADIATION DOSE: CT Rad equipment meets quality standard of care and radiation dose reduction techniq ues were employed. CTDIvol: 16.3 mGy. DLP: 901 mGy-cm.mGy. LIMITATIONS: None. FINDINGS: LOWER CHEST: 11 mm nodule in the medial aspect of the left lower lobe. NON-CONTRASTED LIVER, SPLEEN, ADRENALS: The liver is hypoattenuating. No masses. The spleen and adr enal glands are normal. PANCREAS: No masses. No peripancreatic inflammatory changes. GALLBLADDER: No identified stones by CT criteria. No inflammatory changes to suggest cholecystitis. RIGHT KIDNEY AND URETER: No suspicious masses. Assessment limited by lack of IV contrast. No signif icant calcifications. No hydronephrosis or hydroureter. LEFT KIDNEY AND URETER: No suspicious masses. Assessment limited by lack of IV contrast. No signifi cant calcifications. No hydronephrosis or hydroureter. AORTA AND RETROPERITONEUM: No aneurysm. No retroperitoneal masses or adenopathy. BOWEL AND PERITONEAL CAVITY: No obvious masses or inflammatory changes. No free fluid. APPENDIX: Normal. PELVIS, BLADDER, AND ABDOMINAL WALL:No abnormal masses. No free fluid. Bladder normal. BONES: No significant findings. OTHER: No other significant finding. IMPRESSION: 1. Hepatic steatosis. 2. 11 mm pulmonary nodule on the left. COMMENT: FLEISCHNER CRITERIA FOR FOLLOW-UP OF PULMONARY NODULES Incidentally detected new nodules in persons 35 or older. HIGH RISK: History of smoking or other known risk factors. >8 mm single solid nodule: LOW and HIGH RISK: consider CT, PET/CT or biopsy at 3 mo. Quality ID # [id number]: Final reports with documentation of one or more dose reduction techniques (e.g., Au tomated exposure control, adjustment of the mA and/or kV according to patient size, use of iterative reconstruction technique) TECHNICAL DOCUMENTATION: JOB ID: [id number] 2010 [employer]- All Rights Reserved Reading location - IP/workstation name: [email or web address]
[2020-05-12 14:54] LABS: CALCIUM 6.8 mg/dL (8.4-10.2); POTASSIUM 2.4 mmol/L (3.6-5.0)
[2020-05-12] MEDS ORDERED: NORMAL SALINE 1000 ML 1,000 ML IV ONE (14:56)
--- NOTE | 2020-05-12 15:09 | ER Document Report ---
ED General - General Chief Complaint: Nausea/Vomiting Stated Complaint: NAUSEA/VOMITING Time Seen by Provider: 05/12/20 13:02 Primary Care Provider: MAURY HANDY NP [NO LOCAL MD] - Follow up as needed Mode of Arrival: Ambulatory Information source: Patient TRAVEL OUTSIDE OF THE [place] IN LAST 30 DAYS: No - HPI Notes: Patient presents complaining of severe nausea and vomiting. He states he is unable to tolerate any type of solids or liquids due to severe discomfort after he eats. He states that he has been unable to eat or drink for several weeks. He states he is recently diagnosed with eosinophilic esophagitis and has been placed on some home medications including antiemetics however he has had no relief. Patient states that he also has distention and abdominal discomfort after eating. This discomfort is a bloated sensation. He states is worse with eating and better when he does not eat. It radiates across the upper part of his abdomen and is severe in intensity. It is intermittent. No significant p roblems with stool or urine. - Related Data Allergies/Adverse Reactions: No Known Allergies Allergy (Verified 05/12/20 13:53) Home Medications: omeprazole, GERD, flovent, atorovastatin Past Medical History - General Information source: Patient - Social History Smoking Status: Former Smoker Frequency of alcohol use: None Drug Abuse: None Family History: Reviewed & Not Pertinent Patient has homicidal ideation: No - Past Medical History Cardiac Medical History: Denies: Hx Coronary Artery Disease, Hx Heart Attack, Hx Hypertension Pulmonary Medical History: Reports: Hx Asthma Denies: Hx Bronchitis, Hx COPD, Hx Pneumonia Neurological Medical History: Denies: Hx Cerebrovascular Accident, Hx Seizures GI Medical History: Reports: Hx Gastroesophageal Reflux Disease Musculoskeletal Medical History: Denies Hx Arthritis Psychiatric Medical History: Reports: Hx Post Traumatic Stress Disorder Traumatic Medical History: Reports: Hx Traumatic Brain Injury Past Surgical History: Reports: Hx Oral Surgery - wisdom teeth - Immunizations Hx Diphtheria, Pertussis, Tetanus Vaccination: Yes Review of Systems - Review of Systems Constitutional: denies: Chills, Fever Cardiovascular: denies: Chest pain, Palpitations Respiratory: denies: Cough, Short of breath -: Yes All other systems reviewed and negative Physical Exam - Vital signs Vitals: Temp Pulse Resp BP Pulse Ox 99.0 F 54 L 16 108/78 95 05/12/20 12:11 05/12/20 12:11 05/12/20 12:11 05/12/20 12:11 05/12/20 12:11 Interpretation: Normal - General General appearance: Appears well, Alert - HEENT Head: Normocephalic, Atraumatic Eyes: Normal Pupils: PERRL - Respiratory Respiratory status: No respiratory distress Chest status: Nontender Breath sounds: Normal Chest palpation: Normal - Cardiovascular Rhythm: Regular Heart sounds: Normal auscultation Murmur: No - Abdominal Inspection: Normal Distension: No distension Bowel sounds: Normal Tenderness: Nontender Organomegaly: No organomegaly - Back Back: Normal, Nontender - Extremities General upper extremity: Normal inspection, Nontender, Normal color, Normal ROM, Normal temperature General lower extremity: Normal inspection, Nontender, Normal color, Normal ROM, Normal temperature, Normal weight bearing. No: Aileen's sign - Neurological Neuro grossly intact: Yes Cognition: Normal Orientation: AAOx4 Ana Coma Scale Eye Opening: Spontaneous Ana Coma Scale Verbal: Oriented [place] Coma Scale Motor: Obeys Commands Ana Coma Scale Total: 15 Speech: Normal Motor strength normal: LUE, RUE, LLE, RLE Sensory: Normal - Psychological Associated symptoms: Normal affect, Normal mood - Skin Skin Temperature: Warm Skin Moisture: Dry Skin Color: Normal Course - Re-evaluation Re-evalutation: 05/12/20 15:07 Patient presents complaining of the inability to eat or drink secondary to discomfort. His labs are consistent with poor nutrition. Patient is hypokalemic, hypocalcemic, and has low albumin. I called and discussed the case with the patient's search lead, Dr. Rubio. He recommends admission with possible repeat endoscopy tomorrow. - Vital Signs Vital signs: Temp Pulse Resp BP Pulse Ox 99.0 F 54 L 16 108/78 95 05/12/20 12:11 05/12/20 12:11 05/12/20 12:11 05/12/20 12:11 05/12/20 12:11 - Laboratory Result Diagrams: 05/12/20 13:50 05/12/20 13:50 Laboratory results interpreted by me: 05/12/20 05/12/20 05/12/20 13:50 13:50 14:06 RDW 14.1 H Lymph % (Auto) 11.7 L Seg Neutrophils % 78.8 H Potassium 2.4 L* Chloride 108 H Carbon Dioxide 20 L Calcium 6.8 L* AST 72 H ALT 145 H Total Protein 5.4 L Albumin 2.9 L Urine Protein 100 H Urine Ketones 20 H Urine Urobilinogen 4.0 H - Diagnostic Test Radiology reviewed: Image reviewed, Reports reviewed Discharge - Discharge Clinical Impression: Hypokalemia due to excessive gastrointestinal loss of potassium, Hypocalcemia, Hypoalbuminemia due to protein-calorie malnutrition, Eosinophilic esophagitis Vomiting Qualifiers: Vomiting type: bilious vomiting Nausea presence: with nausea Qualified Code(s): R11.14 - Bilious vomiting Condition: Serious Disposition: ADMITTED OBSERVATION Admitting Provider: Claribel (Hospitalist) Unit Admitted: Medical Floor Referrals: MAURY HANDY NP [NO LOCAL MD] - Follow up as needed
[2020-05-12] MEDS: POTASSI CL 20 MEQ/50 ML RIDER 20 MEQ/50 ML RTUPB IV SCH ×3 (15:23→19:09)
[2020-05-12] MEDS ORDERED: GLUCAGON,HUMAN RECOMB 1 MG INJ SUBCUT PRN (16:38)
[2020-05-12] MEDS ORDERED: DEXTROSE 40% GEL 15 GM TUBE PO PRN ×2 (16:38)
[2020-05-12] MEDS ORDERED: IPRATROPIUM/ALBUTEROL 0.5-2.5 MG/3 ML AMPUL NEB PRN (16:38)
[2020-05-12] MEDS ORDERED: DEXTROSE 50%-WATER 25 GM/50 ML DISP.SYRIN IV PRN ×2 (16:38)
--- NOTE | 2020-05-12 18:04 | PDOC H&P ---
History of Present Illness Admission Date/PCP: 05/12/20 16:21 MARIS VALENTINE MD Patient complains of: Bloody vomitus, nausea History of Present Illness: JUNIOR SUERO is a 35 year old male, past medical history of asthma who came into ED today due to bloody vomitus, nausea. Patient was recently diagnosed with a acidophilic esophagitis about 1 month prior when he presented with dysphagia, nausea. He follows with Dr. Rubio and is currently on Flovent for his eosinophilic esophagitis. He has been experiencing decreased appetite, abdominal bloating ,nausea for the past few weeks. This morning he noted blood streaked vomitus, minimal which prompted ED consult. He denies any fever, no melena, no hematochezia. In the emergency room blood pressure 108/78, heart rate 54, temperature 99. CBC showed WBC of 9.2, hemoglobin 16.8. CMP showed a potassium of 2.4, calcium of 6.8, albumin of 2.9. Dr. Rubio was called by the ED physician who recommended admission for hydration and EGD tomorrow morning. He was given potassium IV in the ED. Past Medical History Cardiac Medical History: Denies: Coronary Artery Disease, Myocardial Infarction, Hypertension Pulmonary Medical History: Reports: Asthma Denies: Bronchitis, Chronic Obstructive Pulmonary Disease (COPD), Pneumonia EENT Medical History: Reports: None Neurological Medical History: Reports: None Denies: Seizures Endocrine Medical History: Reports: None Renal/ Medical History: Reports: None Malignancy Medical History: Reports: None GI Medical History: Reports: None, Gastroesophageal Reflux Disease Musculoskeltal Medical History: Denies: Arthritis Skin Medical History: Reports: None Psychiatric Medical History: Reports: Post Traumatic Stress Disorder Hematology: Denies: Anemia Social History Information Source: Patient Lives with: Grandparent(s) Smoking Status: Former Smoker Frequency of Alcohol Use: None Drugs: None Family History Family History: Reviewed & Not Pertinent Parental Family History Reviewed: Yes Children Family History Reviewed: Yes Sibling(s) Family History Reviewed.: Yes Medication/Allergy Home Medications: Albuterol Sulfate [Albuterol Sulfate Hfa] 1 dose PO PRN PRN 04/23/20 Atorvastatin Calcium [Lipitor 40 mg Tablet] 1 tab PO DAILY 04/23/20 Fluticasone/Vilanterol [Breo 100-25 Mcg Ellipta 14 Dose/Dpi] 1 dose PO DAILY 04/23/20 Omeprazole 40 mg PO DAILY 04/24/20 Promethazine HCl [Phenergan 25 mg Tablet] 25 - 50 mg PO ASDIR PRN #12 tablet 05/09/20 Allergies/Adverse Reactions: No Known Allergies Allergy (Verified 05/12/20 13:53) Review of Systems Constitutional: PRESENT: anorexia, weakness Eyes: ABSENT: visual disturbances Ears: ABSENT: hearing changes Nose, Mouth, and Throat: ABSENT: mouth pain Cardiovascular: ABSENT: chest pain, orthropnea Respiratory: ABSENT: hemoptysis Gastrointestinal: PRESENT: abdominal pain, bloating, hematemesis. ABSENT: hematochezia, melena Neurological: ABSENT: frequent falls Physical Exam Vital Signs: Temp Pulse Resp BP Pulse Ox 99.0 F 54 L 14 108/78 96 05/12/20 12:11 05/12/20 12:11 05/12/20 17:00 05/12/20 12:11 05/12/20 17:00 Intake & Output 05/11/20 05/12/20 05/13/20 06:59 06:59 06:59 Intake Total 2039 Balance 2039 Weight 116.7 kg General appearance: PRESENT: no acute distress, cooperative Head exam: PRESENT: atraumatic, normocephalic Eye exam: PRESENT: EOMI, PERRLA Ear exam: PRESENT: normal external ear exam Mouth exam: PRESENT: moist Neck exam: PRESENT: full ROM. ABSENT: JVD Respiratory exam: PRESENT: clear to auscultation coy, symmetrical. ABSENT: rales, unlabored Cardiovascular exam: PRESENT: RRR, +S1, +S2 Pulses: PRESENT: +2 pedal pulses bilateral GI/Abdominal exam: PRESENT: normal bowel sounds, soft, tenderness. ABSENT: rebound Extremities exam: ABSENT: joint swelling Musculoskeletal exam: PRESENT: full ROM Neurological exam: PRESENT: alert, awake, oriented to person, oriented to place, oriented to time, oriented to situation Psychiatric exam: PRESENT: normal mood Skin exam: PRESENT: normal color Results Laboratory Results: 05/12/20 13:50 05/12/20 13:50 05/12/20 05/12/20 05/12/20 13:50 13:50 13:50 WBC 9.2 RBC 5.53 Hgb 16.8 Hct 46.8 MCV 85 MCH 30.4 MCHC 35.9 RDW 14.1 H Plt Count 216 Seg Neutrophils % 78.8 H Sodium 139.7 Potassium 2.4 L* Chloride 108 H Carbon Dioxide 20 L Anion Gap 12 BUN 8 Creatinine 0.61 Est GFR ( Amer) > 60 Glucose 76 Calcium 6.8 L* Magnesium 1.8 Total Bilirubin 0.8 AST 72 H Alkaline Phosphatase 75 Total Protein 5.4 L Albumin 2.9 L Lipase 132.3 Urine Color Urine Appearance Urine pH Ur Specific [place] Urine Protein Urine Glucose (UA) Urine Ketones Urine Blood Urine Nitrite Ur Leukocyte Esterase Urine WBC (Auto) Urine RBC (Auto) 05/12/20 14:06 WBC RBC Hgb Hct MCV MCH MCHC RDW Plt Count Seg Neutrophils % Sodium Potassium Chloride Carbon Dioxide Anion Gap BUN Creatinine Est GFR ( Amer) Glucose Calcium Magnesium Total Bilirubin AST Alkaline Phosphatase Total Protein Albumin Lipase Urine Color BITA Urine Appearance CLOUDY Urine pH 6.0 Ur Specific [place] 1.026 Urine Protein 100 H Urine Glucose (UA) NEGATIVE Urine Ketones 20 H Urine Blood NEGATIVE Urine Nitrite NEGATIVE Ur Leukocyte Esterase NEGATIVE Urine WBC (Auto) 12 Urine RBC (Auto) 1 Impressions: Chest X-Ray 05/12/20 13:05 IMPRESSION: NO ACUTE RADIOGRAPHIC FINDING IN THE CHEST. Abdomen/Pelvis CT 05/12/20 14:10 IMPRESSION: 1. Hepatic steatosis. 2. 11 mm pulmonary nodule on the left. Assessment and Plan - Diagnosis (1) Eosinophilic esophagitis Is this a current diagnosis for this admission?: Yes Plan: -recent diagnosis. Coming in due to minimal blood streaked vomiting, decreased appetite - follows with Dr. Rubio - BP stable, Hgb 16.8 - will start IV protonix - Dr. Rubio for EGD tomorrow - keep NPO (2) Upper GI bleed Is this a current diagnosis for this admission?: Yes Plan: - came in with minimal hematemesis - BP and HR stable - Hgb 16.8 - likely 2/2 Eosinophilic esoph or myrna lay tear from vomiting - continue fluid resuscitation - maintain 2 large bore IV at all times - PPI IV - NPO - possible EGD tomorrow per Dr. rubio (3) Hypokalemia due to excessive gastrointestinal loss of potassium Is this a current diagnosis for this admission?: Yes Plan: - K 2.4 - given 60 meq IV - repeat K at 10 pm - replace as needed - checking magnesium (4) Hypocalcemia Is this a current diagnosis for this admission?: Yes Plan: - corrected Ca 7.7 - will start IV Ca gluconate - monitor daily (5) Hypoalbuminemia due to protein-calorie malnutrition Is this a current diagnosis for this admission?: Yes Plan: - from poor oral intake from Eosinophilic esoph (6) Bronchial asthma Qualifiers: Asthma severity: mild Asthma persistence: intermittent Is this a current diagnosis for this admission?: Yes Plan: - not in exacerbation - continue breo - PRN dumayab (7) Obesity (BMI 30-39.9) Is this a current diagnosis for this admission?: Yes Plan: - advised diet modification and weight oss - Time Time Spent with patient: 35 or more minutes Medications reviewed and adjusted accordingly: Yes Anticipated Discharge Disposition: Home, Self Care Anticipated Discharge Timeframe: within 48 hours
[2020-05-12] MEDS: FLUTICASONE/VILANTEROL 100-25 MCG/DOSE IH SCH (18:10)
--- NOTE | 2020-05-12 19:02 | PDOC CONSULTATION ---
Consultation Consult Date: 05/12/20 Provider Consulted: LISA TRINIDAD Consult reason:: inablity to tolerate oral intake History of Present Illness Admission Date/PCP: 05/12/20 16:21 MARIS VALENTINE MD History of Present Illness: JUNIOR SUERO is a 35 year old male Patient is known to my service recently had EGD that showed eosinophilic esophagitis was started on oral fluticasone which is the treatment of choice could not tolerate was seen an an outpatient was given a course of Nystatin swish and swallow which according to the patient did not help was started on a PPI as well ultimately fluticasone was discontinued problems remained persistent CT scan done negative admitted for observation will need repeat EGD NPO post midnight Past Medical History Cardiac Medical History: Denies: Coronary Artery Disease, Myocardial Infarction, Hypertension Pulmonary Medical History: Reports: Asthma Denies: Bronchitis, Chronic Obstructive Pulmonary Disease (COPD), Pneumonia EENT Medical History: Reports: None Neurological Medical History: Reports: None Denies: Seizures Endocrine Medical History: Reports: None Renal/ Medical History: Reports: None Malignancy Medical History: Reports: None GI Medical History: Reports: None, Gastroesophageal Reflux Disease Musculoskeltal Medical History: Denies: Arthritis Skin Medical History: Reports: None Psychiatric Medical History: Reports: Post Traumatic Stress Disorder Traumatic Medical History: Reports: Traumatic Brain Injury Hematology: Denies: Anemia Social History Lives with: Grandparent(s) Smoking Status: Former Smoker Frequency of Alcohol Use: None Drugs: None Family History Family History: Reviewed & Not Pertinent Parental Family History Reviewed: Yes Children Family History Reviewed: Unknown Sibling(s) Family History Reviewed.: Unknown Medication/Allergy Home Medications: Albuterol Sulfate [Albuterol Sulfate Hfa] 1 dose PO PRN PRN 04/23/20 Atorvastatin Calcium [Lipitor 40 mg Tablet] 1 tab PO DAILY 04/23/20 Fluticasone/Vilanterol [Breo 100-25 Mcg Ellipta 14 Dose/Dpi] 1 dose PO DAILY 04/23/20 Omeprazole 40 mg PO DAILY 04/24/20 Promethazine HCl [Phenergan 25 mg Tablet] 25 - 50 mg PO ASDIR PRN #12 tablet 05/09/20 Allergies/Adverse Reactions: No Known Allergies Allergy (Verified 05/12/20 13:53) Review of Systems Constitutional: ABSENT: fever(s), headache(s), night sweats Eyes: ABSENT: visual disturbances Ears: ABSENT: hearing changes Nose, Mouth, and Throat: ABSENT: mouth pain, sore throat Respiratory: ABSENT: dyspnea, hemoptysis Gastrointestinal: PRESENT: dysphagia, nausea, vomiting. ABSENT: melena Musculoskeletal: ABSENT: deformity, joint swelling Integumentary: ABSENT: lesions, pruritus Neurological: ABSENT: syncope, tingling, tremor(s), vertigo Endocrine: ABSENT: polydipsia, polyphagia, polyuria Hematologic/Lymphatic: ABSENT: easy bruising Physical Exam Vital Signs: Temp Pulse Resp BP Pulse Ox 99.0 F 54 L 16 108/78 96 05/12/20 12:11 05/12/20 12:11 05/12/20 18:00 05/12/20 12:11 05/12/20 18:00 Intake & Output 05/11/20 05/12/20 05/13/20 06:59 06:59 06:59 Intake Total 2039 Balance 2039 Weight 116.7 kg General appearance: PRESENT: mild distress, well-developed, well-nourished Head exam: PRESENT: atraumatic, normocephalic Eye exam: PRESENT: EOMI, PERRLA, scleral icterus Mouth exam: PRESENT: moist, neck supple Teeth exam: ABSENT: edentulous Throat exam: PRESENT: post pharyngeal erythema Neck exam: ABSENT: meningismus, tenderness, thyromegaly Respiratory exam: PRESENT: symmetrical. ABSENT: tachypnea, unlabored, wheezes Cardiovascular exam: PRESENT: RRR, +S1, +S2 GI/Abdominal exam: PRESENT: normal bowel sounds, organolmegaly, soft. ABSENT: Overton's sign, rebound, rigid Extremities exam: ABSENT: joint swelling, pedal edema Musculoskeletal exam: PRESENT: full ROM Neurological exam: PRESENT: alert, awake. ABSENT: CN II-XII grossly intact Skin exam: PRESENT: normal color, warm. ABSENT: pallor, urticaria, vesicles Results Laboratory Results: 05/12/20 13:50 05/12/20 13:50 05/12/20 05/12/20 05/12/20 13:50 13:50 13:50 WBC 9.2 RBC 5.53 Hgb 16.8 Hct 46.8 MCV 85 MCH 30.4 MCHC 35.9 RDW 14.1 H Plt Count 216 Seg Neutrophils % 78.8 H Sodium 139.7 Potassium 2.4 L* Chloride 108 H Carbon Dioxide 20 L Anion Gap 12 BUN 8 Creatinine 0.61 Est GFR ( Amer) > 60 Glucose 76 Calcium 6.8 L* Magnesium 1.8 Total Bilirubin 0.8 AST 72 H Alkaline Phosphatase 75 Total Protein 5.4 L Albumin 2.9 L Lipase 132.3 Urine Color Urine Appearance Urine pH Ur Specific [place] Urine Protein Urine Glucose (UA) Urine Ketones Urine Blood Urine Nitrite Ur Leukocyte Esterase Urine WBC (Auto) Urine RBC (Auto) 05/12/20 14:06 WBC RBC Hgb Hct MCV MCH MCHC RDW Plt Count Seg Neutrophils % Sodium Potassium Chloride Carbon Dioxide Anion Gap BUN Creatinine Est GFR ( Amer) Glucose Calcium Magnesium Total Bilirubin AST Alkaline Phosphatase Total Protein Albumin Lipase Urine Color BITA Urine Appearance CLOUDY Urine pH 6.0 Ur Specific [place] 1.026 Urine Protein 100 H Urine Glucose (UA) NEGATIVE Urine Ketones 20 H Urine Blood NEGATIVE Urine Nitrite NEGATIVE Ur Leukocyte Esterase NEGATIVE Urine WBC (Auto) 12 Urine RBC (Auto) 1 Impressions: Chest X-Ray 05/12/20 13:05 IMPRESSION: NO ACUTE RADIOGRAPHIC FINDING IN THE CHEST. Abdomen/Pelvis CT 05/12/20 14:10 IMPRESSION: 1. Hepatic steatosis. 2. 11 mm pulmonary nodule on the left. Assessment & Plan - Diagnosis (1) Eosinophilic esophagitis Is this a current diagnosis for this admission?: Yes Plan: did not do well on prescribed therapy admitted will need EGD correct K will need repeat COvid 19 testing , rapid testing to have EGD done tomorrow Risks, benefits and alternatives are discussed with the patient in detail further recommendations to follow - Time Time Spent: 50 to 70 Minutes
[2020-05-12] MEDS ORDERED: CALCIUM GLUCONATE 1000 MG/10 ML INJ IV ONE (19:30)
[2020-05-12] MEDS: PANTOPRAZOLE SODIUM 40 MG VIAL IV SCH (22:00)
[2020-05-12 23:00] LABS: ANION GAP 12 (5-19); BLOOD UREA NITROGEN 9 mg/dL (7-20); CALCIUM 9.4 mg/dL (8.4-10.2); CARBON DIOXIDE 28 mmol/L (22-30); CHLORIDE 98 mmol/L (98-107); GLUCOSE 117 mg/dL (75-110)
[2020-05-12 23:01] LABS: POTASSIUM 3.5 mmol/L (3.6-5.0)
[2020-05-13 05:42] LABS: INTERNATIONAL RATION (INR) 1.12; PROTHROMBIN TIME 14.6 SEC (11.4-15.4)
[2020-05-13 05:43] LABS: PARTIAL THROMBOPLASTIN TIME 30.9 SEC (23.5-35.8)
[2020-05-13 05:54] LABS: ABSOLUTE EOSINOPHILS # (AUTO) 0.1 10^3/uL (0.0-0.6); ABSOLUTE LYMPHOCYTES (AUTO) 1.7 10^3/uL (0.5-4.7); ABSOLUTE MONOCYTES (AUTO) 0.6 10^3/uL (0.1-1.4); ABSOLUTE NEUT (AUTO) 4.2 10^3/uL (1.7-8.2); BASOPHILS % (AUTO) 0.6 % (0-2); EOSINOPHILS % (AUTO) 1.9 % (0-6); HEMATOCRIT 45.3 % (37.9-51.0); HEMOGLOBIN 15.8 g/dL (13.5-17.0); LYMPHOCYTES % (AUTO) 25.2 % (13-45); MEAN CORPUSCULAR HEMOGLOBIN 29.9 pg (27.0-33.4); MEAN CORPUSCULAR HGB CONC 34.8 g/dL (32.0-36.0); MEAN CORPUSCULAR VOLUME 86 fl (80-97); MONOCYTES % (AUTO) 9.4 % (3-13); PLATELET COUNT 166 10^3/uL (150-450); RED BLOOD COUNT 5.26 10^6/uL (4.35-5.55); SEGMENTED NEUTROPHILS % (AUTO) 62.9 % (42-78); TOTAL CELLS COUNTED % (AUTO) 100 %; WHITE BLOOD COUNT 6.7 10^3/uL (4.0-10.5)
[2020-05-13 05:55] LABS: ALBUMIN 3.9 g/dL (3.5-5.0); ALKALINE PHOSPHATASE 94 U/L (38-126); ANION GAP 12 (5-19); ASPARTATE AMINO TRANSFERASE 94 U/L (17-59); BILIRUBIN,DIRECT 0.5 mg/dL (0.0-0.4); BILIRUBIN,TOTAL 0.8 mg/dL (0.2-1.3); BLOOD UREA NITROGEN 6 mg/dL (7-20); CALCIUM 9.4 mg/dL (8.4-10.2); CARBON DIOXIDE 27 mmol/L (22-30); CHLORIDE 100 mmol/L (98-107); GLUCOSE 111 mg/dL (75-110); POTASSIUM 3.5 mmol/L (3.6-5.0); TOTAL PROTEIN 6.7 g/dL (6.3-8.2)
[2020-05-13] MEDS: ONDANSETRON HCL INJ/PF 4 MG/2 ML SDV IV PRN ×2 (06:27→18:38)
--- NOTE | 2020-05-13 10:11 | RADIOLOGY REPORT (SQ) ---
EXAM DESCRIPTION: NM HIDA SCAN WITH CCK IMAGES COMPLETED DATE/TIME: 05/13/2020 9:50 am REASON FOR STUDY: ABDOMINAL PAIN COMPARISON: Abdominal ultrasound dated 02/24/[address] abdomen pelvis dated 05/12/2020 RADIONUCLIDE AND DOSE: DOSAGE RADIONUCLIDE: 5.44 millicuries Tc99m Mebrofenin. DOSAGE CCK: 2.4 micrograms. DOSAGE MORPHINE: Not required. The route of agent administration: Intravenous TECHNIQUE: Serial imaging right upper quadrant up to 60 minutes following injection of radionuclide. CCK injected after gallbladder visualized. LIMITATIONS: None. FINDINGS: LIVER: Normal visualization without areas of photopenia. INTRA AND EXTRAHEPATIC BILE DUCTS: Normal accumulation of activity. GALLBLADDER: Normal visualization. Calculated Ejection Fraction of 7%. Below the normal value of 35% or greater. PHYSICAL RESPONSE: Patients presenting complaint was reproduced. OTHER: No other significant finding. IMPRESSION: LOW GALLBLADDER EJECTION FRACTION. EVIDENCE FOR BILIARY DYSKINESIS. NO CYSTIC OR COMMO N DUCT OBSTRUCTION. TECHNICAL DOCUMENTATION: JOB ID: [id number] 2010 [employer] All Rights Reserved Reading location - IP/workstation name: [email or web address]
[2020-05-13] MEDS: POTASSI CL 20 MEQ/50 ML RIDER 20 MEQ/50 ML RTUPB IV SCH ×2 (10:17→13:42)
[2020-05-13] MEDS: FLUTICASONE/VILANTEROL 100-25 MCG/DOSE IH SCH (10:17)
[2020-05-13] MEDS: DEXTROSE 5%-LACTATED RINGERS 1,000 ML IV PRN (10:19)
[2020-05-13] MEDS: PANTOPRAZOLE SODIUM 40 MG VIAL IV SCH ×2 (10:19→21:16)
--- NOTE | 2020-05-13 10:58 | Operative Report ---
Operative Report DATE OF SURGERY: 05/13/20 Operative Report: The risks benefits and alternatives of the procedure explained to the patient in detail and informed consent is obtained.A GIF Olympus video scope was inserted into the patient's mouth and hypopharynx ,the esophagus is identified intubated and insufflated ,the scope was then advanced through the esophagus stomach and duodenum, retroflexion maneuver is done, the esophagus stomach and first and second portions of the duodenum examined PREOPERATIVE DIAGNOSIS: Inability to tolerate oral intake. Previous EGD showing evidence of eosinophilic esophagitis. Patient failed outpatient fluticasone. Failed trial of nystatin swish and swallow. Noted gallbladder ejection fraction of 7%. POSTOPERATIVE DIAGNOSIS: Normal esophagus without any erosions or ulcers. Eosinophilic esophagitis still present. No Isabela noted. No stricture noted. No mass lesions noted. Stomach normal. OPERATION: EGD with biopsy SURGEON: LISA TRINIDAD ANESTHESIA: LMAC TISSUE REMOVED OR ALTERED: As noted above. COMPLICATIONS: None. ESTIMATED BLOOD LOSS: None. INTRAOPERATIVE FINDINGS: As noted above. PROCEDURE: Patient tolerated the procedure well. Subjective is room in good condition. May need surgical consult for biliary dyskinesia. Repeat upper endoscopy does not show any Isabela esophagitis. No stricture or mass lesion is noted Give any treatment for eosinophilic esophagitis currently is fluticasone but through the oral route. Oral steroids are not indicated. Patient is unable to tolerate treatment medication. May be worthwhile to administer fluticasone in applesauce provided through oral route. We will follow-up as outpatient.
[2020-05-13] MEDS ORDERED: PROPOFOL INJ 200 MG/20 ML VIAL IV ONE (11:00)
--- NOTE | 2020-05-13 19:54 | PDOC PROGRESS REPORT ---
Subjective Progress Note for:: 05/13/20 Subjective:: JUNIOR SUERO is a 35 year old male, past medical history of asthma who came into ED today due to bloody vomitus, nausea. Patient was recently diagnosed with a acidophilic esophagitis about 1 month prior when he presented with dysphagia, nausea. He follows with Dr. Rubio and is currently on Flovent for his eosinophilic esophagitis. He has been experiencing decreased appetite, abdominal bloating ,nausea for the past few weeks. This morning he noted blood streaked vomitus, minimal which prompted ED consult. He denies any fever, no melena, no hematochezia. In the emergency room blood pressure 108/78, heart rate 54, temperature 99. CBC showed WBC of 9.2, hemoglobin 16.8. CMP showed a potassium of 2.4, calcium of 6.8, albumin of 2.9. Dr. Rubio was called by the ED physician who recommended admission for hydration and EGD tomorrow morning. He was given potassium IV in the ED. 05/13/20 D2 hospital stay. He was seen and examined at bedside. No recurrence of hematemesis, no abdominal pain, no chest pain, no nausea/vomiting. He underwent HIDA scan and EGD. HIDA scan showed decreased EF of his GB. EGD unchanged from previous per Dr. Rubio. No active bleeding noted. Dr. Rubio asked if surgery can assess him regarding abnormal HIDA scan result. He was started on regular diet and his flovent for eosinophilic esophagitis resumed to be mixed with apple sauce. Plan for discharge tomorrow. Reason For Visit: EOSINOPHILIC ESOPHAGITIS Physical Exam Vital Signs: Temp Pulse Resp BP Pulse Ox 97.8 F 52 L 16 113/76 98 05/13/20 15:54 05/13/20 15:54 05/13/20 15:54 05/13/20 15:54 05/13/20 15:54 Intake & Output 05/12/20 05/13/20 05/14/20 06:59 06:59 06:59 Intake Total 2465 730 Output Total 325 1000 Balance 2140 -270 Weight 118.4 kg 118.4 kg General appearance: PRESENT: no acute distress, cooperative Head exam: PRESENT: atraumatic, normocephalic Eye exam: PRESENT: EOMI, PERRLA Ear exam: PRESENT: normal external ear exam Mouth exam: PRESENT: moist Neck exam: PRESENT: full ROM Respiratory exam: PRESENT: clear to auscultation coy, symmetrical, unlabored. ABSENT: rales Cardiovascular exam: PRESENT: +S1, +S2 GI/Abdominal exam: PRESENT: normal bowel sounds, soft. ABSENT: rebound, ten derness Extremities exam: ABSENT: +2 edema Musculoskeletal exam: PRESENT: full ROM Neurological exam: PRESENT: alert, awake, oriented to person, oriented to place, oriented to time Psychiatric exam: PRESENT: normal mood Skin exam: PRESENT: normal color Results Laboratory Results: 05/13/20 05:21 05/13/20 05:21 05/12/20 05/13/20 05/13/20 22:30 05:21 05:21 WBC 6.7 RBC 5.26 Hgb 15.8 Hct 45.3 MCV 86 MCH 29.9 MCHC 34.8 RDW 14.0 Plt Count 166 Seg Neutrophils % 62.9 Sodium 138.0 138.8 Potassium 3.5 L D 3.5 L Chloride 98 100 Carbon Dioxide 28 27 Anion Gap 12 12 BUN 9 6 L Creatinine 0.80 0.72 Est GFR ( Amer) > 60 > 60 Glucose 117 H 111 H Calcium 9.4 9.4 Magnesium 2.2 Total Bilirubin 0.8 AST 94 H Alkaline Phosphatase 94 Total Protein 6.7 Albumin 3.9 Impressions: Chest X-Ray 05/12/20 13:05 IMPRESSION: NO ACUTE RADIOGRAPHIC FINDING IN THE CHEST. Abdomen/Pelvis CT 05/12/20 14:10 IMPRESSION: 1. Hepatic steatosis. 2. 11 mm pulmonary nodule on the left. Hepatobiliary Scan Nuclear Medicine 05/13/20 00:00 IMPRESSION: LOW GALLBLADDER EJECTION FRACTION. EVIDENCE FOR BILIARY DYS KINESIS. NO CYSTIC OR COMMON DUCT OBSTRUCTION. Assessment and Plan - Diagnosis (1) Eosinophilic esophagitis Is this a current diagnosis for this admission?: Yes Plan: -recent diagnosis. Coming in due to minimal blood streaked vomiting, decreased appetite - follows with Dr. Rubio - BP stable, Hgb 16.8>15.8 - continue protonix - s/p EGD today Normal esophagus without any erosions or ulcers. Eosinophilic esophagitis still present. No Isabela noted. No stricture noted. No mass lesi ons noted. Stomach normal. - per Dr. Rubio may mix flovent inhaler with apple sauce and swallow and see if he can tolerate flovent better (2) Upper GI bleed Is this a current diagnosis for this admission?: Yes Plan: - came in with minimal hematemesis - BP and HR stable - Hgb 16.8>15.8 - likely 2/2 Eosinophilic esoph - s/p EGD as above no active bleeding noted - maintain 2 large bore IV at all times - PPI IV switch to oral tomorrow (3) Hypokalemia due to excessive gastrointestinal loss of potassium Is this a current diagnosis for this admission?: Yes Plan: - K 2.4>3.5 - given 60 meq IV - Mg 1.8 (4) Hypocalcemia Is this a current diagnosis for this admission?: Yes Plan: - resolved - monitor daily (5) Hypoalbuminemia due to protein-calorie malnutrition Is this a current diagnosis for this admission?: Yes Plan: - from poor oral intake from Eosinophilic esoph - regular diet resumed (6) Bronchial asthma Qualifiers: Asthma severity: mild Asthma persistence: intermittent Is this a current diagnosis for this admission?: Yes Plan: - not in exacerbation - continue breo - PRN duoneb (7) Obesity (BMI 30-39.9) Is this a current diagnosis for this admission?: Yes Plan: - advised diet modification and weight oss (8) Pulmonary nodule 1 cm or greater in diameter Is this a current diagnosis for this admission?: Yes Plan: - incidentally noted on CT abdomen 11 mm - CXR negative, no prior CT - will need CT chest and pulmonology follow up (9) Abnormal biliary HIDA scan Is this a current diagnosis for this admission?: Yes Plan: - low EF per HIDA scan suggestive of bladder dyskinesia - surgery consulted - Time Time Spent with patient: 25-34 minutes Anticipated Discharge Disposition: Home, Self Care Anticipated Discharge Timeframe: within 24 hours
[2020-05-13] MEDS: FLUTICASONE PROPIONATE HFA 110 MCG/PUFF 12 GM MDI IH SCH (21:18)
--- NOTE | 2020-05-13 22:09 | PDOC CONSULTATION ---
Consultation Consult Date: 05/13/20 Provider Consulted: SURGICAL SURGICALIST Consult reason:: abnormal HIDA, nuasea and vomiting History of Present Illness Admission Date/PCP: 05/12/20 16:21 MARIS VALENTINE MD Patient complains of: nausea, and vomiting. Abnormal HIDA History of Present Illness: JUNIOR SUERO is a 35 year old male seen in consultation at the request of the hospitalist service. The patient was admitted for nausea, vomiting, and hematemesis. He has had intermittent symptoms for approximately 2 months now. The patient has been diagnosed previously with eosinophilic esophagitis, however has not been able to take his medication patient sees mostly due to insurance issues). The patient had a CCK HIDA scan, which shows a depressed gallbladder ejection fraction. Currently, the patient experiences constant nausea and burning epigastric pain. Thing makes it better or worse. He has the symptoms regardless of food or water intake. Upon admission, he was found to have a significant electrolyte abnormalities. He denies any chest pain, shortness of breath, cough, fevers, chills, dizziness, orthostasis. He denies a history of diabetes or gastroparesis. Past Medical History Cardiac Medical History: Denies: Coronary Artery Disease, Myocardial Infarction, Hypertension Pulmonary Medical History: Reports: Asthma Denies: Bronchitis, Chronic Obstructive Pulmonary Disease (COPD), Pneumonia EENT Medical History: Reports: None Neurological Medical History: Reports: None Denies: Seizures Endocrine Medical History: Reports: None Renal/ Medical History: Reports: None Malignancy Medical History: Reports: None GI Medical History: Reports: None, Gastroesophageal Reflux Disease Musculoskeltal Medical History: Denies: Arthritis Skin Medical History: Reports: None Psychiatric Medical History: Reports: Post Traumatic Stress Disorder Denies: Depression Traumatic Medical History: Reports: Traumatic Brain Injury Hematology: Denies: Anemia Past Surgical History Past Surgical History: Reports: Other - EGD Social History Lives with: Grandparent(s) Smoking Status: Former Smoker Electronic Cigarette use?: No Frequency of Alcohol Use: None Hx Recreational Drug Use: No Drugs: None Hx Prescription Drug Abuse: No Family History Family History: Reviewed & Not Pertinent Parental Family History Reviewed: Yes Children Family History Reviewed: Yes Sibling(s) Family History Reviewed.: Yes Medication/Allergy Home Medications: Albuterol Sulfate [Albuterol Sulfate Hfa] 2 puff IH Q6HP PRN 04/23/20 Atorvastatin Calcium [Lipitor 40 mg Tablet] 40 mg PO DAILY 04/23/20 Fluticasone/Vilanterol [Breo 100-25 Mcg Ellipta 14 Dose/Dpi] 1 puff IH DAILY 04/23/20 Omeprazole 40 mg PO Q6AM 04/24/20 Fluticasone Propionate [Flovent Hfa] 2 puff IH Q8 05/13/20 Allergies/Adverse Reactions: No Known Allergies Allergy (Verified 05/12/20 13:53) Review of Systems Constitutional: PRESENT: anorexia, fatigue. ABSENT: chills, fever(s) Eyes: ABSENT: visual disturbances Ears: ABSENT: hearing changes Nose, Mouth, and Throat: ABSENT: sore throat Cardiovascular: ABSENT: chest pain Respiratory: ABSENT: cough Gastrointestinal: PRESENT: abdominal pain, bloating, hematemesis, nausea, vomiting Genitourinary: ABSENT: dysuria Musculoskeletal: ABSENT: back pain Integumentary: ABSENT: pruritus, rash Neurological: ABSENT: confusion, convulsions, dizziness Psychiatric: ABSENT: anxiety, depression Endocrine: ABSENT: cold intolerance, heat intolerance Hematologic/Lymphatic: ABSENT: easy bleeding, easy bruising Physical Exam Vital Signs: Temp Pulse Resp BP Pulse Ox 97.8 F 52 L 16 113/76 98 05/13/20 15:54 05/13/20 15:54 05/13/20 15:54 05/13/20 15:54 05/13/20 15:54 Intake & Output 05/12/20 05/13/20 05/14/20 06:59 06:59 06:59 Intake Total 2465 730 Output Total 325 1000 Balance 2140 -270 Weight 118.4 kg 118.4 kg General appearance: PRESENT: obese Head exam: PRESENT: atraumatic, normocephalic Eye exam: PRESENT: EOMI, PERRLA. ABSENT: scleral icterus Mouth exam: PRESENT: moist, neck supple Neck exam: ABSENT: meningismus, tenderness, thyromegaly, tracheal deviation Respiratory exam: PRESENT: unlabored. ABSENT: tachypnea, wheezes Cardiovascular exam: ABSENT: tachycardia Vascular exam: PRESENT: normal capillary refill GI/Abdominal exam: PRESENT: soft. ABSENT: distended, firm, guarding, hernia, tenderness Rectal exam: PRESENT: deferred Extremities exam: ABSENT: clubbing Musculoskeletal exam: ABSENT: deformity Neurological exam: PRESENT: alert, awake, oriented to person, oriented to place, oriented to time, oriented to situation, CN II-XII grossly intact. ABSENT: motor sensory deficit Psychiatric exam: ABSENT: agitated, anxious, depressed Focused psych exam: ABSENT: delusional Skin exam: ABSENT: cyanosis, erythema, jaundice Results Laboratory Results: 05/13/20 05:21 05/13/20 05:21 05/12/20 05/13/20 05/13/20 22:30 05:21 05:21 WBC 6.7 RBC 5.26 Hgb 15.8 Hct 45.3 MCV 86 MCH 29.9 MCHC 34.8 RDW 14.0 Plt Count 166 Seg Neutrophils % 62.9 Sodium 138.0 138.8 Potassium 3.5 L D 3.5 L Chloride 98 100 Carbon Dioxide 28 27 Anion Gap 12 12 BUN 9 6 L Creatinine 0.80 0.72 Est GFR ( Amer) > 60 > 60 Glucose 117 H 111 H Calcium 9.4 9.4 Magnesium 2.2 Total Bilirubin 0.8 AST 94 H Alkaline Phosphatase 94 Total Protein 6.7 Albumin 3.9 Impressions: Chest X-Ray 05/12/20 13:05 IMPRESSION: NO ACUTE RADIOGRAPHIC FINDING IN THE CHEST. Abdomen/Pelvis CT 05/12/20 14:10 IMPRESSION: 1. Hepatic steatosis. 2. 11 mm pulmonary nodule on the left. Hepatobiliary Scan Nuclear Medicine 05/13/20 00:00 IMPRESSION: LOW GALLBLADDER EJECTION FRACTION. EVIDENCE FOR BILIARY DYSKINESIS. NO CYSTIC OR COMMON DUCT OBSTRUCTION. Assessment & Plan - Plan Summary Plan Summary: This is a 35-year-old male with nausea, vomiting, and a known history of eosinophilic esophagitis. He does report a history of hematemesis. At this time, he cannot identify any known fatty food intolerance. He does have a depressed ejection fraction on CCK HIDA scan, however this test is incredibly unreliable. Surgery is usually reserved for people with obvious fatty food intolerance. At this time, after much discussion regarding the risks and benefits of surgery, the patient has elected to defer surgery until such time as he can identify specific fatty food intolerance. I have instructed the patient to keep a food journal. He should follow-up with me as an outpatient to review his food journal, and make a decision regarding surgery. I will see him again as an outpatient. If needed in-hospital, please renotify. Surgery will sign off at this time
[2020-05-14] MEDS: DEXTROSE 5%-LACTATED RINGERS 1,000 ML IV PRN ×2 (00:56→09:08)
[2020-05-14] MEDS: FLUTICASONE PROPIONATE HFA 110 MCG/PUFF 12 GM MDI IH SCH ×2 (05:50→14:58)
[2020-05-14] MEDS ORDERED: INFLUENZA QUAD (6MOS+) 2020-21 VAC 0.5 ML SYR IM ONE (08:00)
[2020-05-14] MEDS: FLUTICASONE/VILANTEROL 100-25 MCG/DOSE IH SCH (09:05)
[2020-05-14] MEDS: PANTOPRAZOLE SODIUM 40 MG VIAL IV SCH (09:08)
[2020-05-14 16:44] VITALS: BP 121/82
--- NOTE | 2020-05-14 20:05 | PDOC DISCHARGE SUMMARY ---
Impression - Admit/DC Date/PCP Admission Date/Primary Care Provider: 05/12/20 16:21 MARIS VALENTINE MD Discharge Date: 05/14/20 - Discharge Diagnosis (1) Eosinophilic esophagitis Is this a current diagnosis for this admission?: Yes (2) Upper GI bleed Is this a current diagnosis for this admission?: Yes (3) Hypokalemia due to excessive gastrointestinal loss of potassium Is this a current diagnosis for this admission?: Yes (4) Hypocalcemia Is this a current diagnosis for this admission?: Yes (5) Hypoalbuminemia due to protein-calorie malnutrition Is this a current diagnosis for this admission?: Yes (6) Bronchial asthma Is this a current diagnosis for this admission?: Yes (7) Obesity (BMI 30-39.9) Is this a current diagnosis for this admission?: Yes (8) Pulmonary nodule 1 cm or greater in diameter Is this a current diagnosis for this admission?: Yes (9) Abnormal biliary HIDA scan Is this a current diagnosis for this admission?: Yes - Additional Information Discharge Diet: As Tolerated Discharge Activity: Activity As Tolerated Referrals: MEDHAT PIKE MD [ACTIVE STAFF] - MAURY HANDY NP [NO LOCAL MD] - Follow up as needed Prescriptions: Ondansetron [Zofran Odt 4 mg Tablet] 1 - 2 tab PO Q4HP PRN 5 Days #10 tab.rapdis PRN Reason: Home Medications: Albuterol Sulfate [Albuterol Sulfate Hfa] 2 puff IH Q6HP PRN 04/23/20 Atorvastatin Calcium [Lipitor 40 mg Tablet] 40 mg PO DAILY 04/23/20 Fluticasone/Vilanterol [Breo 100-25 Mcg Ellipta 14 Dose/Dpi] 1 puff IH DAILY 04/23/20 Omeprazole 40 mg PO Q6AM 04/24/20 Fluticasone Propionate [Flovent Hfa] 2 puff IH Q8 05/13/20 Ondansetron [Zofran Odt 4 mg Tablet] 1 - 2 tab PO Q4HP PRN 5 Days #10 tab.rapdis 05/14/20 History of Present Illiness History of Present Illness: JUNIOR SUERO is a 35 year old male, past medical history of asthma who came into ED today due to bloody vomitus, nausea. Patient was recently diagnosed with a acidophilic esophagitis about 1 month prior when he presented with dysphagia, nausea. He follows with Dr. Rubio and is currently on Flovent for his eosinophilic esophagitis. He has been experiencing decreased appetite, abdominal bloating ,nausea for the past few weeks. This morning he noted blood streaked vomitus, minimal which prompted ED consult. He denies any fever, no me yesica, no hematochezia. In the emergency room blood pressure 108/78, heart rate 54, temperature 99. CBC showed WBC of 9.2, hemoglobin 16.8. CMP showed a potassium of 2.4, calcium of 6.8, albumin of 2.9. Dr. Rubio was called by the ED physician who recommended admission for hydration and EGD tomorrow morning. He was given potassium IV in the ED. Hospital Course Hospital Course: 05/13/20 D2 hospital stay. He was seen and examined at bedside. No recurrence of hematemesis, no abdominal pain, no chest pain, no nausea/vomiting. He underwent HIDA scan and EGD. HIDA scan showed decreased EF of his GB. EGD unchanged from previous per Dr. Rubio. No active bleeding noted. Dr. Rubio asked if surgery can assess him regarding abnormal HIDA scan result. He was started on regular diet and his flovent for eosinophilic esophagitis resumed to be mixed with apple sauce. Plan for discharge tomorrow. HE was able to tolerate regular diet with very minimal abdominal pain and nausea. CT chest done to assess pulmonary nodule seen in abdominal CT. HE will follow up with pulm and PCP outpatient. He will continue flovent for eosinophilic esophagitis. he will also follow up with Dr. May for GB. Physical Exam Vital Signs: Temp Pulse Resp BP Pulse Ox 98.2 F 59 L 16 121/82 100 05/14/20 18:43 05/14/20 18:43 05/14/20 18:43 05/14/20 15:06 05/14/20 18:43 Intake & Output 05/13/20 05/14/20 05/15/20 06:59 06:59 06:59 Intake Total 2465 1730 2000 Output Total 325 2200 Balance 2140 -470 1999 Weight 118.4 kg 118.4 kg General appearance: PRESENT: no acute distress, cooperative, obese Head exam: PRESENT: atraumatic, normocephalic Eye exam: PRESENT: EOMI, PERRLA Mouth exam: PRESENT: moist Neck exam: PRESENT: full ROM Respiratory exam: PRESENT: chest wall tenderness, symmetrical. ABSENT: unlabored Cardiovascular exam: PRESENT: RRR, +S1, +S2 GI/Abdominal exam: PRESENT: normal bowel sounds, soft. ABSENT: rebound, tenderness Extremities exam: PRESENT: full ROM Musculoskeletal exam: PRESENT: full ROM Neurological exam: PRESENT: alert, awake, oriented to person, oriented to place, oriented to time, oriented to situation Skin exam: PRESENT: normal color Results Laboratory Results: WBC 6.7 10^3/uL (4.0-10.5) 05/13/20 05:21 RBC 5.26 10^6/uL (4.35-5.55) 05/13/20 05:21 Hgb 15.8 g/dL (13.5-17.0) 05/13/20 05:21 Hct 45.3 % (37.9-51.0) 05/13/20 05:21 MCV 86 fl (80-97) 05/13/20 05:21 MCH 29.9 pg (27.0-33.4) 05/13/20 05:21 MCHC 34.8 g/dL (32.0-36.0) 05/13/20 05:21 RDW 14.0 % (11.5-14.0) 05/13/20 05:21 Plt Count 166 10^3/uL (150-450) 05/13/20 05:21 Lymph % (Auto) 25.2 % (13-45) 05/13/20 05:21 [place] % (Auto) 9.4 % (3-13) 05/13/20 05:21 Eos % (Auto) 1.9 % (0-6) 05/13/20 05:21 Baso % (Auto) 0.6 % (0-2) 05/13/20 05:21 Absolute Neuts (auto) 4.2 10^3/uL (1.7-8.2) 05/13/20 05:21 Absolute Lymphs (auto) 1.7 10^3/uL (0.5-4.7) 05/13/20 05:21 Absolute Monos (auto) 0.6 10^3/uL (0.1-1.4) 05/13/20 05:21 Absolute Eos (auto) 0.1 10^3/uL (0.0-0.6) 05/13/20 05:21 Absolute Basos (auto) 0.0 10^3/uL (0.0-0.2) 05/13/20 05:21 Seg Neutrophils % 62.9 % (42-78) 05/13/20 05:21 PT 14.6 SEC (11.4-15.4) 05/13/20 05:21 INR 1.12 05/13/20 05:21 APTT 30.9 SEC (23.5-35.8) 05/13/20 05:21 Sodium 138.8 mmol/L (137-145) 05/13/20 05:21 Potassium 3.5 mmol/L (3.6-5.0) L 05/13/20 05:21 Chloride 100 mmol/L (98-107) 05/13/20 05:21 Carbon Dioxide 27 mmol/L (22-30) 05/13/20 05:21 Anion Gap 12 (5-19) 05/13/20 05:21 BUN 6 mg/dL (7-20) L 05/13/20 05:21 Creatinine 0.72 mg/dL (0.52-1.25) 05/13/20 05:21 Est GFR ( Amer) > 60 (>60) 05/13/20 05:21 Est GFR (MDRD) Non-Af > 60 (>60) 05/13/20 05:21 Glucose 111 mg/dL (75-110) H 05/13/20 05:21 Calcium 9.4 mg/dL (8.4-10.2) 05/13/20 05:21 Magnesium 2.2 mg/dL (1.6-2.3) 05/13/20 05:21 Total Bilirubin 0.8 mg/dL (0.2-1.3) 05/13/20 05:21 Direct Bilirubin 0.5 mg/dL (0.0-0.4) H 05/13/20 05:21 Neonat Total Bilirubin Not Reportable 05/13/20 05:21 Neonat Direct Bilirubin Not Reportable 05/13/20 05:21 Neonat Indirect Bili Not Reportable 05/13/20 05:21 AST 94 U/L (17-59) H 05/13/20 05:21 ALT 191 U/L (<50) H 05/13/20 05:21 Alkaline Phosphatase 94 U/L (38-126) 05/13/20 05:21 Total Protein 6.7 g/dL (6.3-8.2) 05/13/20 05:21 Albumin 3.9 g/dL (3.5-5.0) 05/13/20 05:21 Lipase 132.3 U/L (23-300) 05/12/20 13:50 Urine Color BITA 05/12/20 14:06 Urine Appearance CLOUDY 05/12/20 14:06 Urine pH 6.0 (5.0-9.0) 05/12/20 14:06 Ur Specific [place] 1.026 05/12/20 14:06 Urine Protein 100 mg/dL (NEGATIVE) H 05/12/20 14:06 Urine Glucose (UA) NEGATIVE mg/dL (NEGATIVE) 05/12/20 14:06 Urine Ketones 20 mg/dL (NEGATIVE) H 05/12/20 14:06 Urine Blood NEGATIVE (NEGATIVE) 05/12/20 14:06 Urine Nitrite NEGATIVE (NEGATIVE) 05/12/20 14:06 Urine Bilirubin NEGATIVE (NEGATIVE) 05/12/20 14:06 Urine Urobilinogen 4.0 mg/dL (<2.0) H 05/12/20 14:06 Ur Leukocyte Esterase NEGATIVE (NEGATIVE) 05/12/20 14:06 Urine WBC (Auto) 12 /HPF 05/12/20 14:06 Urine RBC (Auto) 1 /HPF 05/12/20 14:06 Squamous Epi Cells Auto 1 /HPF 05/12/20 14:06 Urine Mucus (Auto) MANY /LPF 05/12/20 14:06 Urine Ascorbic Acid NEGATIVE (NEGATIVE) 05/12/20 14:06 SARS-CoV-2 (PCR) NEGATIVE (NEGATIVE) 05/12/20 22:35 Impressions: Chest X-Ray 05/12/20 13:05 IMPRESSION: NO ACUTE RADIOGRAPHIC FINDING IN THE CHEST. Abdomen/Pelvis CT 05/12/20 14:10 IMPRESSION: 1. Hepatic steatosis. 2. 11 mm pulmonary nodule on the left. Hepatobiliary Scan Nuclear Medicine 05/13/20 00:00 IMPRESSION: LOW GALLBLADDER EJECTION FRACTION. EVIDENCE FOR BILIARY DYSKINESIS. NO CYSTIC OR COMMON DUCT OBSTRUCTION. Plan Health Concerns: eosinophilic esophagitis - continue flovent pulmonary nodule - await CT chest result Follow up with Dr. Hill for GB concerns Plan of Treatment: follow up with PCP, GI, pulm and surgery outpatient Time Spent: Less than 30 Minutes Stroke Is this a Stroke Patient?: No Acute Heart Failure Is this a Heart Failure Patient?: No
--- NOTE | 2020-05-15 02:10 | RADIOLOGY REPORT (SQ) ---
CT CHEST WITH INTRAVENOUS CONTRAST: 05/15/2020 1:00 AM CDT HISTORY: 35-year old patient with concern for pulmonary nodule. TECHNIQUE: Postcontrast CT through the chest was performed. Sagittal and coronal reconstructed images were also obtained and examined. This exam was performed according to our departmental dose-optimization program, which includes automated exposure control, adjustment of the mA and/or KV according to the patient's size and/or use of iterative reconstruction technique. COMPARISON: CT of abdomen and pelvis from 05/12/2020 FINDINGS: The heart size is normal in size. No pericardial effusion is seen. No significant mediastinal, supraclavicular, or axillary lymphadenopathy is seen. The thoracic aorta is within normal limits of size. The main pulmonary artery is within normal limits of size. No focal filling defect is seen at the visualized pulmonary arteries. There is no evidence of a focal consolidative airspace opacity. No discrete pleural effusion is seen. There is no evidence of a pneumothorax. There is a 10 mm nodule seen at the left lower lobe on image 46 of 67. The visualized upper abdomen is unremarkable. The bones demonstrate no suspicious lytic or blastic lesion. The visualized hepatic parenchyma is diffusely low in attenuation. IMPRESSION: No acute consolidative airspace opacity is seen. There is a 10 mm nodule at the left lower lobe. This will need interval follow-up with PET/CT, comparison with prior imaging, or CT imaging within three months.
== END 2020-05-14 18:59 | disposition home or self-care (01) ==
LOC: ER 10:21 → EH 16:21 → 4W 22:05
PROVIDERS: ADMIT Internal Medicine; ATTEND Internal Medicine
DX: K20.0 Eosinophilic esophagitis (principal); K92.2 Gastrointestinal hemorrhage, unspecified; E87.6 Hypokalemia; E83.51 Hypocalcemia; E88.09 Other disorders of plasma-protein metabolism, not elsewhere classified; J45.998 Other asthma; E66.9 Obesity, unspecified; R91.1 Solitary pulmonary nodule; R93.2 Abnormal findings on diagnostic imaging of liver and biliary tract; R11.2 Nausea with vomiting, unspecified; R63.0 Anorexia; Z20.828 Contact with and (suspected) exposure to other viral communicable diseases; Z79.899 Other long term (current) drug therapy
CPT/HCPCS: 99285; 96361; 96375; 96365; 43239; 36415 ×2; 83690; 83735 ×2; 85025 ×2; 85610; 85730; 87635; 80053 ×2; 81001; 88305 ×2; 71045; 78227; 71260; 74176; 00731; G0378 ×4; J2805; A9537; J0610; J2765; C9113 ×2; J2405; J3480 ×2; J7121 ×2; J7030; J7120; J2704; J3490 ×2; Q9969; C9803; 731

== ENCOUNTER → 2020-07-07 | Outpatient (CLI) | payer OTHER ==
--- NOTE | 2020-07-07 16:03 | RADIOLOGY REPORT (SQ) ---
EXAM DESCRIPTION: PET CT SKULL/THIGH IMAGES COMPLETED DATE/TIME: 07/07/2020 12:03 pm REASON FOR STUDY: (R91.1)SOLITARY PULMONARY NODULE R91.1 SOLITARY PULMONARY NODULE COMPARISON: Chest CT dated 05/14/2020. RADIONUCLIDE AND DOSE: 10 mCi F18 FDG The route of agent administration: Intravenous FASTING BLOOD SUGAR: 92 mg/dl CONTRAST TYPE AND DOSE: No CT contrast given. TECHNIQUE: Blood glucose level was verified. Above dose of FDG was injected intravenously. 2-D seg mented attenuation correction images were obtained from the base of the skull to the midthighs. Nonc ontrast CT images were obtained for attenuation correction and fusion with emission images. CT image s were performed without oral or intravenous contrast and are not sensitive for parenchymal lesions. A series of overlapping emission PET images were obtained. Images reviewed and manipulated at [facility] work station by the radiologist. Images stored on PACS. LIMITATIONS: None. FINDINGS: HEAD AND NECK: There is a focal hypermetabolic nodule in the left lobe of the thyroid. Th is is not clearly defined on the noncontrast CT images. Mean SUV 5.4. CHEST: No areas of abnormal metabolic activity in the chest. ABDOMEN AND PELVIS: No areas of abnormal metabolic activity in the abdomen or pelvis. Expected physi ologic activity is present in the genitourinary system and bowel. PROXIMAL LOWER EXTREMITIES: No areas of abnormal metabolic activity in the soft tissues of the lower extremities. BONES: No abnormal metabolic activity in the visualized skeleton. ADDITIONAL CT FINDINGS: 1 cm pulmonary nodule in the left lower lobe, unchanged from prior CT. No ad ditional significant findings on the noncontrast CT images. OTHER: No other significant findings. IMPRESSION: 1. FOCAL SMALL HYPERMETABOLIC NODULE IN THE LEFT LOBE OF THE THYROID. RECOMMEND FOLLOW-UP THYROID UL TRASOUND. 2. THE REMAINDER OF THE PET SCAN IS OTHERWISE UNREMARKABLE. THE 1 CM PULMONARY NODULE IN THE LEFT LO WER LOBE DEMONSTRATES NO ABNORMAL FDG UPTAKE. TECHNICAL DOCUMENTATION: JOB ID: [id number] [employer]- All Rights Reserved Reading location - IP/workstation name: [email or web address]
== END ==
LOC: RAD 08:32
PROVIDERS: ATTEND Internal Medicine Pulmonary Disease
DX: R91.1 Solitary pulmonary nodule (principal)
CPT/HCPCS: 78815; A9552